=== PATIENT | female | born 1975 | race Hispanic/Latino ===

== ENCOUNTER 2020-12-05 06:50 | Emergency (ER) | payer MEDICAID, MEDICARE, OTHER ==
[~2020-12-05] VITALS: Ht 152.4 cm; Wt 81.6 kg
[~2020-12-05 06:50] MED LIST: AMLO5TAB4 PO; FERS325 PO; HYDR100T27 PO; ROSU20TA31 PO
[2020-12-05 07:48] VITALS: BP 142/58
[2020-12-05 08:59] LABS: BASOPHILS % (AUTO) 0.9 % (0.0-5.0); EOSINOPHILS % (AUTO) 2.8 % (0.0-8.0); HEMATOCRIT 38.6 % (36-48); LYMPHOCYTES % (AUTO) 17.6 % (21.0-51.0); MEAN CORPUSCULAR HEMOGLOBIN 26.9 pg (27.0-33.0); MEAN CORPUSCULAR HGB CONC 30.8 g/dL (32.0-36.0); MEAN CORPUSCULAR VOLUME 87.3 fL (79-99); MONOCYTES % (AUTO) 12.7 % (3.0-13.0); NEUTROPHILS % (AUTO) 65.5 % (40.0-77.0); PLATELET COUNT (AUTO) 300 K/uL (130-400); RED BLOOD CELL COUNT(AUTO) 4.42 MIL/uL (4.00-5.50); RED CELL DISTRIBUTION WIDTH 17.8 % (11.0-15.5); WHITE BLOOD COUNT (AUTO) 4.3 K/uL (4.8-10.8)
[2020-12-05 09:01] VITALS: BP 142/71
[2020-12-05 09:04] LABS: APPEARANCE,URINE Cloudy (CLEAR); BILIRUBIN,URINE Negative (NEGATIVE); COLOR,URINE Yellow (YELLOW); GLUCOSE, URINE (UA) TRACE mg/dL (NEGATIVE); KETONES,URINE Trace mg/dL (NEGATIVE); LEUKOCYTE ESTERASE ,URINE Moderate (NEGATIVE); NITRATE,URINE Positive (NEGATIVE); OCCULT BLOOD,URINE Trace (NEGATIVE); PH,URINE 5.5 (5.0-8.0); PROTEIN,URINE >=1000 mg/dL (NEGATIVE); UROBILINOGEN,URINE 0.2 mg/dL (0.2-1.0)
[2020-12-05 09:05] LABS: HCG,QUAL RESULT NEGATIVE (NEGATIVE)
[2020-12-05 09:17] LABS: RBC,URINE 0-1 /HPF (0-1); WBC,URINE 51-100 /HPF (0-1)
[2020-12-05 09:18] LABS: BACTERIA,URINE Rare /HPF (None Seen); SQUAMOUS EPITHELIAL CELL,UR Few /HPF (0-2)
[2020-12-05 09:38] LABS: ALBUMIN 2.1 g/dL (3.5-5.0); BILIRUBIN,TOTAL 0.3 mg/dL (0.2-1.0); TOTAL PROTEIN, SERUM 6.6 g/dL (6.0-8.3)
[2020-12-05 09:48] LABS: CREATININE 9.9 mg/dL (0.5-1.5)
[2020-12-05] MEDS ORDERED: BENZ-39 PO (10:21)
[2020-12-05] MEDS ORDERED: DOXY-252 PO (10:21)
[2020-12-05] MEDS ORDERED: CEFTRIAXONE 1G VIAL IVP SCH (10:30)
[2020-12-05 11:00] VITALS: BP 162/85
== END 2020-12-05 11:14 | disposition home or self-care (01) ==
LOC: EDH 06:50
DX: J18.9 Pneumonia, unspecified organism (principal); I12.0 Hypertensive chronic kidney disease with stage 5 chronic kidney disease or end stage renal disease; N18.6 End stage renal disease; Z20.822 Contact with and (suspected) exposure to COVID-19; E78.00 Pure hypercholesterolemia, unspecified; Z79.899 Other long term (current) drug therapy
CPT/HCPCS: 36415; 71045; 80053; 81001; 81025; 82550; 83605; 83874; 84484; 85025; 87040 ×2; 87077; 87088; 87186; 87635; 87804 ×2; 87880; 93005; 96374; 99285; C9803; J0696

== ENCOUNTER 2021-02-12 11:37 | Inpatient (IN) | payer OTHER ==
[~2021-02-12] VITALS: Ht 162.6 cm; Wt 99.8 kg
[~2021-02-12 11:37] MED LIST changes: +BENZ-39 PO; +DOXY-252 PO
[2021-02-12] MEDS ORDERED: MAG/ALUM/SIMETH 30 ML UDCUP PO SCH (12:00)
[2021-02-12] MEDS ORDERED: LORAZEPAM 2 MG/ML 1 ML VIAL IVP SCH (12:00)
[2021-02-12] MEDS ORDERED: ONDANSETRON 4MG INJ IVP SCH (12:00)
[2021-02-12] MEDS ORDERED: FAMOTIDINE 20MG VIAL IV SCH (12:00)
[2021-02-12 12:16] LABS: BASOPHILS % (AUTO) 0.9 % (0.0-5.0); EOSINOPHILS % (AUTO) 4.4 % (0.0-8.0); LYMPHOCYTES % (AUTO) 21.4 % (21.0-51.0); MEAN CORPUSCULAR HEMOGLOBIN 27.8 pg (27.0-33.0); MEAN CORPUSCULAR HGB CONC 31.9 g/dL (32.0-36.0); MEAN CORPUSCULAR VOLUME 87.4 fL (79-99); MONOCYTES % (AUTO) 9.7 % (3.0-13.0); NEUTROPHILS % (AUTO) 62.9 % (40.0-77.0); PLATELET COUNT (AUTO) 180 K/uL (130-400); RED BLOOD CELL COUNT(AUTO) 3.09 MIL/uL (4.00-5.50); RED CELL DISTRIBUTION WIDTH 17.3 % (11.0-15.5); WHITE BLOOD COUNT (AUTO) 5.5 K/uL (4.8-10.8)
[2021-02-12] MEDS ORDERED: LIDOCAINE HCL 2% VISCOUS 15 ML UDCUP ONE (12:18)
[2021-02-12 12:20] LABS: APPEARANCE,URINE CLEAR (CLEAR); BILIRUBIN,URINE NEGATIVE (NEGATIVE); COLOR,URINE YELLOW (YELLOW); GLUCOSE, URINE (UA) 100 mg/dL (NEGATIVE); KETONES,URINE NEGATIVE (NEGATIVE); LEUKOCYTE ESTERASE ,URINE MODERATE (NEGATIVE); NITRATE,URINE NEGATIVE (NEGATIVE); OCCULT BLOOD,URINE LARGE (NEGATIVE); PH,URINE 5.5 (5.0-8.0); PROTEIN,URINE >=300 mg/dL (NEGATIVE); UROBILINOGEN,URINE 0.2 mg/dL (0.2-1.0)
[2021-02-12 12:37] LABS: ALBUMIN 2.6 g/dL (3.5-5.0); BILIRUBIN,TOTAL 0.2 mg/dL (0.2-1.0); TOTAL PROTEIN, SERUM 6.5 g/dL (6.0-8.3)
[2021-02-12 12:50] LABS: B-TYPE NATRIURETIC PEPTIDE 161 pg/mL (0-100)
[2021-02-12 12:51] LABS: BACTERIA,URINE Many /HPF (None Seen)
[2021-02-12 12:52] LABS: SQUAMOUS EPITHELIAL CELL,UR 0-2 /HPF (0-2)
[2021-02-12 12:56] LABS: CREATININE 11.6 mg/dL (0.5-1.5); POTASSIUM 6.1 mmol/L (3.5-5.1)
[2021-02-12] MEDS ORDERED: 0.9%NACL 1000ML 1,000 ML IV SCH (13:00)
[2021-02-12] MEDS ORDERED: SODIUM BICARB 8.4% 50ML SYRINGE IVP SCH (13:00)
[2021-02-12] MEDS ORDERED: FUROSEMIDE 40 MG UD CUP PO SCH (13:00)
[2021-02-12] MEDS ORDERED: INSULIN HUMULIN R 100 UNIT/ML 3ML IV SCH (13:00)
[2021-02-12] MEDS ORDERED: CEFTRIAXONE 1G VIAL IVP SCH (13:00)
[2021-02-12] MEDS ORDERED: CALCIUM GLUC 1GM 1 GM in 0.9%NACL 100ML 100 ML IV SCH (13:00)
[2021-02-12] MEDS ORDERED: ALBUTEROL 0.083% 2.5 MG/3 ML INH IH ONE (13:15)
[2021-02-12] MEDS ORDERED: DEXTROSE 50%-WATER 50 ML DISP.SYRIN IV SCH (13:30)
[2021-02-12] MEDS ORDERED: NA ZIRCON CYCLOSIL(LOKELMA 10GM) PO SCH (13:30)
[2021-02-12] MEDS ORDERED: ALBUTEROL 0.083% 2.5 MG/3 ML INH IH SCH ×3 (13:30→18:00)
[2021-02-12] MEDS ORDERED: SODIUM BICARB 50MEQ 50ML VIAL 50 ML ONE (14:05)
[2021-02-12] MEDS: KAYEXALATE 15GM/60ML PO SCH ×2 (14:09→16:07)
[2021-02-12] MEDS ORDERED: LISI10TA24 PO (14:29)
[2021-02-12] MEDS ORDERED: CHOL200074 PO (14:29)
[2021-02-12] MEDS ORDERED: FUROSEMIDE 100MG VIAL IVP ONE (15:30)
[2021-02-12] MEDS ORDERED: ACETAMINOPHEN 325 MG TAB PO PRN (15:30)
[2021-02-12] MEDS ORDERED: ACETAMINOPHEN 650 MG SUPPOSITORY RC PRN (15:30)
[2021-02-12] MEDS: INSULIN HUMULIN R 100 UNIT/ML 3ML SQ SCH ×2 (16:30→20:51)
[2021-02-12 17:45] LABS: % IRON SATURATION 87.2 % (22-44)
[2021-02-12] MEDS ORDERED: KAYEXALATE 15GM/60ML PO PRN (18:30)
[2021-02-12] MEDS ORDERED: GLUCAGON 1MG KIT 1 MG ML IM PRN (18:30)
[2021-02-12] MEDS ORDERED: DEXTROSE 50%-WATER 50 ML DISP.SYRIN IV PRN (18:30)
[2021-02-12] MEDS ORDERED: SODIUM BICARB 50MEQ 50ML VIAL IV SCH (18:30)
[2021-02-12] MEDS ORDERED: SODIUM BICARBONATE 650 MG TAB ONE (19:29)
[2021-02-12] MEDS: SODIUM BICARBONATE 650 MG TAB PO SCH ×2 (19:30→19:41)
[2021-02-12 19:34] LABS: ABG HCO3 13.5 mmol/L (21.0-28.0); ABG OXYGEN SATURATION 96.7 % (95.0-99.0); ABG PCO2 33 mmHg (32-45)
[2021-02-12] MEDS ORDERED: SODIUM BICARB 50MEQ 50ML VIAL IV ONE (22:00)
[2021-02-13] MEDS: INSULIN HUMULIN R 100 UNIT/ML 3ML SQ SCH ×4 (07:20→21:00)
[2021-02-13 07:29] LABS: BASOPHILS % (AUTO) 1.3 % (0.0-5.0); EOSINOPHILS % (AUTO) 3.8 % (0.0-8.0); HEMATOCRIT 24.6 % (36-48); LYMPHOCYTES % (AUTO) 19.5 % (21.0-51.0); MEAN CORPUSCULAR HEMOGLOBIN 27.3 pg (27.0-33.0); MEAN CORPUSCULAR HGB CONC 31.7 g/dL (32.0-36.0); MONOCYTES % (AUTO) 11.6 % (3.0-13.0); NEUTROPHILS % (AUTO) 63.4 % (40.0-77.0); PLATELET COUNT (AUTO) 187 K/uL (130-400); RED BLOOD CELL COUNT(AUTO) 2.86 MIL/uL (4.00-5.50); RED CELL DISTRIBUTION WIDTH 16.9 % (11.0-15.5); WHITE BLOOD COUNT (AUTO) 5.2 K/uL (4.8-10.8)
[2021-02-13 07:36] LABS: HEMOGLOBIN A1C 6.1 % (4.0-6.0)
[2021-02-13 07:51] LABS: MAGNESIUM 2.3 mg/dL (1.80-2.40); PHOSPHORUS 10.6 mg/dL (2.5-4.9); POTASSIUM 5.3 mmol/L (3.5-5.1); THYROID STIMULATING HORMONE 17.92 uIU/mL (0.36-3.74)
[2021-02-13 08:32] LABS: CREATININE 11.6 mg/dL (0.5-1.5)
[2021-02-13] MEDS: Vitamin B Complex/Vit C/Folic Acid PO SCH (09:22)
[2021-02-13] MEDS: ENOXAPARIN SODIUM 30 MG/0.3 ML SQ SCH (09:30)
[2021-02-13] MEDS ORDERED: KAYEXALATE 15GM/60ML PO SCH (10:00)
[2021-02-13] MEDS ORDERED: NA ZIRCON CYCLOSIL(LOKELMA 10GM) PO SCH (10:00)
[2021-02-13] MEDS ORDERED: LEVOTHYROXINE 50 MCG TABLET PO SCH (10:05)
[2021-02-13] MEDS: HYDRALAZINE 25MG TABLET PO SCH ×2 (14:00→19:45)
[2021-02-13] MEDS: SODIUM BICARBONATE 650 MG TAB PO SCH ×2 (14:48→19:44)
[2021-02-13] MEDS: FERROUS SULFATE 325 MG TABLET.DR PO SCH (18:46)
[2021-02-13] MEDS: BENZONATATE 100 MG CAPSULE PO SCH (19:44)
[2021-02-13] MEDS ORDERED: FUROSEMIDE 40MG VIAL IVP ONE (20:22)
[2021-02-13] MEDS ORDERED: ATORVASTATIN 40 MG TABLET PO SCH (21:00)
[2021-02-14] MEDS ORDERED: LEVOTHYROXINE 50 MCG TABLET PO SCH (06:30)
[2021-02-14 06:47] LABS: POTASSIUM 4.6 mmol/L (3.5-5.1)
[2021-02-14 06:53] LABS: CREATININE 11.1 mg/dL (0.5-1.5)
[2021-02-14] MEDS: INSULIN HUMULIN R 100 UNIT/ML 3ML SQ SCH (07:30)
[2021-02-14] MEDS ORDERED: SODI650T PO (08:16)
[2021-02-14] MEDS ORDERED: SODI10PO2 PO (08:16)
[2021-02-14] MEDS ORDERED: LEVO50TA11 PO (08:16)
[2021-02-14] MEDS ORDERED: DOCU-116 PO (08:16)
[2021-02-14] MEDS ORDERED: FOLI0.8T2 PO (08:16)
[2021-02-14] MEDS ORDERED: FURO40TA5 PO (08:17)
[2021-02-14] MEDS: FERROUS SULFATE 325 MG TABLET.DR PO SCH (08:22)
[2021-02-14] MEDS ORDERED: SODIUM ZIRCONIUM CYCLOSILICATE 5 GM POWD.PACK PO SCH (09:00)
[2021-02-14] MEDS ORDERED: FUROSEMIDE 40 MG TABLET PO SCH (09:00)
[2021-02-14] MEDS ORDERED: ***HM*** (Cholecalciferol (Vitamin D3) (Vitamin D3) 50 MCG) PO SCH (09:00)
[2021-02-14] MEDS ORDERED: AMLODIPINE 5 MG TAB PO SCH (09:00)
[2021-02-14] MEDS: SODIUM BICARBONATE 650 MG TAB PO SCH (09:12)
[2021-02-14] MEDS: Vitamin B Complex/Vit C/Folic Acid PO SCH (09:12)
[2021-02-14] MEDS: BENZONATATE 100 MG CAPSULE PO SCH (09:12)
[2021-02-14] MEDS: HYDRALAZINE 25MG TABLET PO SCH (09:12)
[2021-02-14] MEDS: ENOXAPARIN SODIUM 30 MG/0.3 ML SQ SCH (09:13)
[2021-02-14 09:41] VITALS: BP 167/51
== END 2021-02-14 10:44 | disposition home or self-care (01) | DRG 291 ==
LOC: EDH 11:37 → EDHIP 15:17 → OBSVTOIN 15:17
PROVIDERS: ADMIT Internal Medicine Pulmonary Disease; ATTEND Internal Medicine Pulmonary Disease
DX: I13.2 Hypertensive heart and chronic kidney disease with heart failure and with stage 5 chronic kidney disease, or end stage renal disease (principal); I50.31 Acute diastolic (congestive) heart failure; J96.01 Acute respiratory failure with hypoxia; N18.6 End stage renal disease; N39.0 Urinary tract infection, site not specified; E87.5 Hyperkalemia; E66.01 Morbid (severe) obesity due to excess calories; D63.8 Anemia in other chronic diseases classified elsewhere; Z20.822 Contact with and (suspected) exposure to COVID-19; E78.5 Hyperlipidemia, unspecified; E87.70 Fluid overload, unspecified; Z68.37 Body mass index [BMI] 37.0-37.9, adult; E11.22 Type 2 diabetes mellitus with diabetic chronic kidney disease; E03.9 Hypothyroidism, unspecified; E83.39 Other disorders of phosphorus metabolism; E83.51 Hypocalcemia; E78.00 Pure hypercholesterolemia, unspecified; E87.8 Other disorders of electrolyte and fluid balance, not elsewhere classified; Z79.899 Other long term (current) drug therapy; Z91.15 Patient's noncompliance with renal dialysis; Z91.19 Patient's noncompliance with other medical treatment and regimen; Z86.73 Personal history of transient ischemic attack (TIA), and cerebral infarction without residual deficits; Z84.1 Family history of disorders of kidney and ureter
CPT/HCPCS: 36415; 36600; 71045; 80048; 80053; 81001; 81025; 82435; 82550; 82803; 82947; 82948; 83036; 83540; 83550; 83605; 83690; 83735; 83874; 83880; 84100; 84132; 84145; 84295; 84443; 84484; 85018; 85025; 85378; 87077; 87088; 87186; 87635; 93005; 94640; G0378; J0610; J1650; J1815; J1940; J2060; J2405; J3490; J7070

== ENCOUNTER 2021-02-16 11:41 | Inpatient (IN) | payer OTHER ==
[~2021-02-16] VITALS: Ht 167.6 cm; Wt 106.6 kg
[2021-02-16] VITALS (17 sets, daily range): BP systolic 132–180; BP diastolic 45–94
[~2021-02-16 11:41] MED LIST changes: +CHOL200074 PO; +DOCU-116 PO; -DOXY-252 PO; +FOLI0.8T2 PO; +FURO40TA5 PO; +LEVO50TA11 PO; +SODI10PO2 PO; +SODI650T PO
[2021-02-16 12:20] LABS: BASOPHILS % (AUTO) 0.8 % (0.0-5.0); EOSINOPHILS % (AUTO) 2.7 % (0.0-8.0); LYMPHOCYTES % (AUTO) 12.2 % (21.0-51.0); MEAN CORPUSCULAR HEMOGLOBIN 27.7 pg (27.0-33.0); MEAN CORPUSCULAR HGB CONC 32.3 g/dL (32.0-36.0); MEAN CORPUSCULAR VOLUME 85.8 fL (79-99); MONOCYTES % (AUTO) 11.2 % (3.0-13.0); NEUTROPHILS % (AUTO) 72.8 % (40.0-77.0); PLATELET COUNT (AUTO) 180 K/uL (130-400); RED BLOOD CELL COUNT(AUTO) 3.03 MIL/uL (4.00-5.50); RED CELL DISTRIBUTION WIDTH 15.9 % (11.0-15.5)
[2021-02-16 12:21] LABS: APPEARANCE,URINE Cloudy (CLEAR); BILIRUBIN,URINE Negative (NEGATIVE); COLOR,URINE Yellow (YELLOW); GLUCOSE, URINE (UA) 250 mg/dL (NEGATIVE); KETONES,URINE Negative (NEGATIVE); LEUKOCYTE ESTERASE ,URINE Small (NEGATIVE); NITRATE,URINE Negative (NEGATIVE); OCCULT BLOOD,URINE Trace (NEGATIVE); PH,URINE 5.5 (5.0-8.0); PROTEIN,URINE 300 mg/dL (NEGATIVE); UROBILINOGEN,URINE 0.2 mg/dL (0.2-1.0)
[2021-02-16 12:29] LABS: INR 1.66 (0.85-1.15); PROTHROMBIN TIME 17.3 SEC (9.6-11.6)
[2021-02-16 12:30] LABS: ALBUMIN 2.9 g/dL (3.5-5.0); POTASSIUM 3.6 mmol/L (3.5-5.1)
[2021-02-16 12:31] LABS: PARTIAL THROMBOPLASTIN TIME 30.5 SEC (26.3-35.5)
[2021-02-16 12:45] LABS: CRP QUANTITATIVE 26.6 mg/L (0.00-9.0)
[2021-02-16 12:46] LABS: BILIRUBIN,TOTAL 0.3 mg/dL (0.2-1.0); TOTAL PROTEIN, SERUM 7.1 g/dL (6.0-8.3)
[2021-02-16 12:47] LABS: BACTERIA,URINE Moderate /HPF (None Seen); FINE GRANULAR CASTS,URINE 0-2 /LPF (None Seen); RBC,URINE 0-1 /HPF (0-1); SQUAMOUS EPITHELIAL CELL,UR 0-2 /HPF (0-2)
[2021-02-16] MEDS ORDERED: LACTULOSE 20 GM/30 ML UDCUP PO PRN (13:00)
[2021-02-16] MEDS ORDERED: ONDANSETRON 4MG INJ IVP PRN (13:00)
[2021-02-16] MEDS ORDERED: LABETALOL 20MG SYG IV PRN (13:00)
[2021-02-16] MEDS ORDERED: CEFTRIAXONE 1G VIAL IVP ONE (13:00)
[2021-02-16] MEDS ORDERED: HYDRALAZINE 20MG/ML VIAL IV PRN (13:00)
[2021-02-16] MEDS ORDERED: ALBUTEROL 0.083% 2.5 MG/3 ML INH IH PRN (13:00)
[2021-02-16] MEDS: HEPARIN 5,000 UNIT VIAL SQ SCH (13:27)
[2021-02-16 13:30] LABS: B-TYPE NATRIURETIC PEPTIDE 428 pg/mL (0-100)
[2021-02-16] MEDS: INSULIN HUMULIN R 100 UNIT/ML 3ML SQ SCH ×2 (16:30→21:00)
[2021-02-16 16:33] LABS: HEMOGLOBIN A1C 6.2 % (4.0-6.0)
[2021-02-16 16:35] LABS: ALBUMIN 2.6 g/dL (3.5-5.0)
[2021-02-16 16:38] LABS: CREATININE 9.6 mg/dL (0.5-1.5)
[2021-02-16] MEDS ORDERED: LIDOCAINE HCL 1% MDV 50ML VIAL ONE (17:29)
[2021-02-16] MEDS ORDERED: HEPARIN 1,000 UNIT VIAL ONE (17:51)
[2021-02-16] MEDS ORDERED: HEPARIN 5,000 UNIT VIAL IV SCH (22:30)
[2021-02-17] VITALS (18 sets, daily range): BP systolic 123–184; BP diastolic 56–78
[2021-02-17] MEDS: HEPARIN 5,000 UNIT VIAL SQ SCH ×2 (01:58→15:20)
[2021-02-17 05:13] LABS: BASOPHILS % (AUTO) 0.8 % (0.0-5.0); EOSINOPHILS % (AUTO) 0.9 % (0.0-8.0); HEMATOCRIT 23.9 % (36-48); LYMPHOCYTES % (AUTO) 10.6 % (21.0-51.0); MEAN CORPUSCULAR HEMOGLOBIN 27.4 pg (27.0-33.0); MEAN CORPUSCULAR HGB CONC 32.2 g/dL (32.0-36.0); MEAN CORPUSCULAR VOLUME 85.1 fL (79-99); MONOCYTES % (AUTO) 10.6 % (3.0-13.0); NEUTROPHILS % (AUTO) 76.7 % (40.0-77.0); PLATELET COUNT (AUTO) 138 K/uL (130-400); RED BLOOD CELL COUNT(AUTO) 2.81 MIL/uL (4.00-5.50); RED CELL DISTRIBUTION WIDTH 15.3 % (11.0-15.5); WHITE BLOOD COUNT (AUTO) 5.3 K/uL (4.8-10.8)
[2021-02-17 05:30] LABS: % IRON SATURATION 24.3 % (22-44)
[2021-02-17 05:37] LABS: ALBUMIN 2.2 g/dL (3.5-5.0); BILIRUBIN,TOTAL 0.2 mg/dL (0.2-1.0); MAGNESIUM 1.7 mg/dL (1.80-2.40); POTASSIUM 3.5 mmol/L (3.5-5.1); TOTAL PROTEIN, SERUM 5.8 g/dL (6.0-8.3)
[2021-02-17] MEDS: INSULIN HUMULIN R 100 UNIT/ML 3ML SQ SCH ×4 (06:33→20:31)
[2021-02-17] MEDS: HYDRALAZINE 25MG TABLET PO SCH ×3 (09:00→20:25)
[2021-02-17] MEDS: CHOLECALCIFEROL 50 MCG PO SCH (09:00)
[2021-02-17] MEDS: PANTOPRAZOLE 40 MG TAB DR PO SCH (10:03)
[2021-02-17] MEDS: Vitamin B Complex/Vit C/Folic Acid PO SCH (10:03)
[2021-02-17] MEDS: DOCUSATE SODIUM 100 MG CAP PO SCH (10:03)
[2021-02-17] MEDS: LEVOTHYROXINE 50 MCG TABLET PO SCH (10:04)
[2021-02-17] MEDS: ACETAMINOPHEN 325 MG TAB PO PRN (10:08)
[2021-02-17] MEDS: LISINOPRIL 40 MG TABLET PO SCH (12:30)
[2021-02-17] MEDS ORDERED: EPOETIN ALFA-EPBX (ESRD) 10,000 UNIT/ML VIAL SQ SCH (12:30)
[2021-02-17] MEDS ORDERED: LISINOPRIL 40 MG TABLET PO SCH (12:30)
[2021-02-17] MEDS ORDERED: SOD FERRIC GLUC COMPLEX/SUC 125 MG in 0.9%NACL 100ML 100 ML IV SCH (12:30)
[2021-02-17] MEDS ORDERED: MAGNESIUM 2GM PREMIX 50ML 50 ML IV PRN (20:00)
[2021-02-17] MEDS ORDERED: POTASSIUM CHLORIDE 20MEQ/100ML 100 ML IV PRN (20:00)
[2021-02-17] MEDS ORDERED: POTASSIUM CHLORIDE 10% ELIXIR 20 MEQ/15 ML UDCUP PO PRN (20:00)
[2021-02-18] VITALS (21 sets, daily range): BP systolic 115–184; BP diastolic 53–96
[2021-02-18] MEDS: HEPARIN 5,000 UNIT VIAL SQ SCH ×2 (01:34→13:50)
[2021-02-18 05:07] LABS: BASOPHILS % (AUTO) 0.9 % (0.0-5.0); EOSINOPHILS % (AUTO) 1.9 % (0.0-8.0); HEMATOCRIT 24.1 % (36-48); LYMPHOCYTES % (AUTO) 21.9 % (21.0-51.0); MEAN CORPUSCULAR HEMOGLOBIN 27.1 pg (27.0-33.0); MEAN CORPUSCULAR HGB CONC 31.5 g/dL (32.0-36.0); MEAN CORPUSCULAR VOLUME 86.1 fL (79-99); MONOCYTES % (AUTO) 14.8 % (3.0-13.0); NEUTROPHILS % (AUTO) 60.1 % (40.0-77.0); PLATELET COUNT (AUTO) 103 K/uL (130-400); RED CELL DISTRIBUTION WIDTH 15.4 % (11.0-15.5); WHITE BLOOD COUNT (AUTO) 4.7 K/uL (4.8-10.8)
[2021-02-18 05:28] LABS: ALBUMIN 2.1 g/dL (3.5-5.0); BILIRUBIN,TOTAL 0.3 mg/dL (0.2-1.0); CREATININE 5.4 mg/dL (0.5-1.5); POTASSIUM 3.3 mmol/L (3.5-5.1); TOTAL PROTEIN, SERUM 5.8 g/dL (6.0-8.3)
[2021-02-18] MEDS: INSULIN HUMULIN R 100 UNIT/ML 3ML SQ SCH ×4 (05:56→21:39)
[2021-02-18] MEDS: LEVOTHYROXINE 50 MCG TABLET PO SCH (06:05)
[2021-02-18] MEDS: KCL 20 MEQ ERTAB PO PRN ×3 (06:05→13:49)
[2021-02-18] MEDS: CHOLECALCIFEROL 50 MCG PO SCH (09:00)
[2021-02-18] MEDS: DOCUSATE SODIUM 100 MG CAP PO SCH (09:17)
[2021-02-18] MEDS: HYDRALAZINE 25MG TABLET PO SCH (09:18)
[2021-02-18] MEDS: Vitamin B Complex/Vit C/Folic Acid PO SCH (09:18)
[2021-02-18] MEDS: LISINOPRIL 40 MG TABLET PO SCH (09:18)
[2021-02-18] MEDS: PANTOPRAZOLE 40 MG TAB DR PO SCH (09:18)
[2021-02-18] MEDS ORDERED: 0.9%NACL 1000ML 1,000 ML IV PRN (13:00)
[2021-02-18 13:11] LABS: HEPATITIS Bs ANTIGEN SCREEN P Negative (Negative)
[2021-02-18] MEDS: METOPROLOL TARTRATE 50 MG TAB PO SCH (21:33)
[2021-02-19] MEDS: HEPARIN 5,000 UNIT VIAL SQ SCH (01:46)
[2021-02-19] MEDS ORDERED: ZOSYN 3.375GM+NS 50ML 50 ML ONE (02:35)
[2021-02-19] MEDS: ZOSYN 3.375GM +NS 50ML IV SCH ×2 (02:38→13:41)
[2021-02-19 04:05] VITALS: BP 152/57
[2021-02-19 04:06] LABS: BASOPHILS % (AUTO) 0.9 % (0.0-5.0); EOSINOPHILS % (AUTO) 4.7 % (0.0-8.0); HEMATOCRIT 25.2 % (36-48); LYMPHOCYTES % (AUTO) 18.2 % (21.0-51.0); MEAN CORPUSCULAR HEMOGLOBIN 27.2 pg (27.0-33.0); MEAN CORPUSCULAR HGB CONC 30.6 g/dL (32.0-36.0); MONOCYTES % (AUTO) 18.2 % (3.0-13.0); NEUTROPHILS % (AUTO) 57.6 % (40.0-77.0); PLATELET COUNT (AUTO) 96 K/uL (130-400); RED BLOOD CELL COUNT(AUTO) 2.83 MIL/uL (4.00-5.50); RED CELL DISTRIBUTION WIDTH 15.6 % (11.0-15.5); WHITE BLOOD COUNT (AUTO) 4.7 K/uL (4.8-10.8)
[2021-02-19 04:53] LABS: ALBUMIN 2.1 g/dL (3.5-5.0); BILIRUBIN,TOTAL 0.2 mg/dL (0.2-1.0); CREATININE 4.3 mg/dL (0.5-1.5); POTASSIUM 4.2 mmol/L (3.5-5.1); TOTAL PROTEIN, SERUM 5.9 g/dL (6.0-8.3)
[2021-02-19] MEDS: INSULIN HUMULIN R 100 UNIT/ML 3ML SQ SCH ×4 (06:49→21:36)
[2021-02-19] MEDS: LEVOTHYROXINE 50 MCG TABLET PO SCH (06:52)
[2021-02-19 07:40] VITALS: BP 181/66
[2021-02-19] MEDS: CHOLECALCIFEROL 50 MCG PO SCH (09:00)
[2021-02-19] MEDS: LISINOPRIL 40 MG TABLET PO SCH (09:22)
[2021-02-19] MEDS: Vitamin B Complex/Vit C/Folic Acid PO SCH (09:22)
[2021-02-19] MEDS: METOPROLOL TARTRATE 50 MG TAB PO SCH ×2 (09:22→21:33)
[2021-02-19] MEDS: DOCUSATE SODIUM 100 MG CAP PO SCH (09:22)
[2021-02-19] MEDS: AMLODIPINE 5 MG TAB PO SCH (09:22)
[2021-02-19] MEDS: PANTOPRAZOLE 40 MG TAB DR PO SCH (09:22)
[2021-02-19 11:40] VITALS: BP 130/55
[2021-02-19] MEDS: ACETAMINOPHEN 325 MG TAB PO PRN (13:42)
[2021-02-19 15:30] VITALS: BP 108/72
[2021-02-19 20:13] VITALS: BP 129/55
[2021-02-19 23:25] VITALS: BP 128/63
[2021-02-20] MEDS: ZOSYN 3.375GM +NS 50ML IV SCH ×2 (02:15→15:10)
[2021-02-20 04:12] LABS: BASOPHILS % (AUTO) 0.8 % (0.0-5.0); EOSINOPHILS % (AUTO) 5.9 % (0.0-8.0); HEMATOCRIT 22.5 % (36-48); MEAN CORPUSCULAR HEMOGLOBIN 27.6 pg (27.0-33.0); MEAN CORPUSCULAR HGB CONC 31.6 g/dL (32.0-36.0); MEAN CORPUSCULAR VOLUME 87.5 fL (79-99); MONOCYTES % (AUTO) 15.1 % (3.0-13.0); NEUTROPHILS % (AUTO) 55.9 % (40.0-77.0); PLATELET COUNT (AUTO) 122 K/uL (130-400); RED BLOOD CELL COUNT(AUTO) 2.57 MIL/uL (4.00-5.50); RED CELL DISTRIBUTION WIDTH 15.7 % (11.0-15.5)
[2021-02-20 04:13] VITALS: BP 154/55
[2021-02-20 04:26] LABS: ALBUMIN 2.1 g/dL (3.5-5.0); BILIRUBIN,TOTAL 0.2 mg/dL (0.2-1.0); CREATININE 5.6 mg/dL (0.5-1.5); POTASSIUM 4.2 mmol/L (3.5-5.1); TOTAL PROTEIN, SERUM 5.7 g/dL (6.0-8.3)
[2021-02-20] MEDS: INSULIN HUMULIN R 100 UNIT/ML 3ML SQ SCH ×4 (05:44→19:33)
[2021-02-20] MEDS: LEVOTHYROXINE 50 MCG TABLET PO SCH (06:37)
[2021-02-20 07:40] VITALS: BP 168/64
[2021-02-20] MEDS: Vitamin B Complex/Vit C/Folic Acid PO SCH (08:43)
[2021-02-20] MEDS: DOCUSATE SODIUM 100 MG CAP PO SCH (08:43)
[2021-02-20] MEDS: METOPROLOL TARTRATE 50 MG TAB PO SCH ×2 (08:44→19:34)
[2021-02-20] MEDS: LISINOPRIL 40 MG TABLET PO SCH (08:44)
[2021-02-20] MEDS: PANTOPRAZOLE 40 MG TAB DR PO SCH (08:44)
[2021-02-20] MEDS: AMLODIPINE 5 MG TAB PO SCH (08:44)
[2021-02-20] MEDS: CHOLECALCIFEROL 50 MCG PO SCH (08:46)
[2021-02-20 11:22] VITALS: BP 161/59
[2021-02-20 15:40] VITALS: BP 115/23
[2021-02-20 19:52] VITALS: BP 157/65
[2021-02-20 23:24] VITALS: BP 158/67
[2021-02-21] VITALS (38 sets, daily range): BP systolic 124–199; BP diastolic 53–88
[2021-02-21] MEDS: ZOSYN 3.375GM +NS 50ML IV SCH ×2 (00:36→14:17)
[2021-02-21 04:25] LABS: BASOPHILS % (AUTO) 0.9 % (0.0-5.0); EOSINOPHILS % (AUTO) 5.8 % (0.0-8.0); HEMATOCRIT 22.4 % (36-48); LYMPHOCYTES % (AUTO) 24.5 % (21.0-51.0); MEAN CORPUSCULAR HEMOGLOBIN 27.6 pg (27.0-33.0); MEAN CORPUSCULAR HGB CONC 30.8 g/dL (32.0-36.0); MEAN CORPUSCULAR VOLUME 89.6 fL (79-99); MONOCYTES % (AUTO) 9.8 % (3.0-13.0); NEUTROPHILS % (AUTO) 58.6 % (40.0-77.0); PLATELET COUNT (AUTO) 148 K/uL (130-400); RED CELL DISTRIBUTION WIDTH 15.8 % (11.0-15.5); WHITE BLOOD COUNT (AUTO) 5.5 K/uL (4.8-10.8)
[2021-02-21 04:38] LABS: ALBUMIN 2.1 g/dL (3.5-5.0); BILIRUBIN,TOTAL 0.2 mg/dL (0.2-1.0); CREATININE 6.3 mg/dL (0.5-1.5); POTASSIUM 4.8 mmol/L (3.5-5.1); TOTAL PROTEIN, SERUM 5.7 g/dL (6.0-8.3)
[2021-02-21] MEDS: INSULIN HUMULIN R 100 UNIT/ML 3ML SQ SCH ×4 (05:08→21:00)
[2021-02-21] MEDS: LEVOTHYROXINE 50 MCG TABLET PO SCH (05:51)
[2021-02-21] MEDS: PANTOPRAZOLE 40 MG TAB DR PO SCH (09:00)
[2021-02-21] MEDS: DOCUSATE SODIUM 100 MG CAP PO SCH (09:00)
[2021-02-21] MEDS: AMLODIPINE 5 MG TAB PO SCH (09:00)
[2021-02-21] MEDS: METOPROLOL TARTRATE 50 MG TAB PO SCH ×2 (09:00→20:36)
[2021-02-21] MEDS: CHOLECALCIFEROL 50 MCG PO SCH (09:00)
[2021-02-21] MEDS: Vitamin B Complex/Vit C/Folic Acid PO SCH (09:00)
[2021-02-21] MEDS: LISINOPRIL 40 MG TABLET PO SCH ×2 (09:00→12:07)
[2021-02-21] MEDS ORDERED: 0.9% NACL 500ML IV.SOLN 500 ML IV ONE ×2 (11:24→13:54)
[2021-02-21] MEDS: HEPARIN 5,000 UNIT VIAL IV PRN (12:59)
[2021-02-21] MEDS ORDERED: CEFAZOLIN SODIUM 1 GM VIAL IVP PRN (13:00)
[2021-02-21] MEDS ORDERED: LIDOCAINE PF 100MG/5ML (2%) SYRINGE 5ML ONE (14:26)
[2021-02-21] MEDS ORDERED: FENTANYL CITRATE PF 50 MCG/1 ML 2ML VIAL ONE ×2 (14:26→16:46)
[2021-02-21] MEDS ORDERED: PROPOFOL 10 MG/ML 20ML VIAL IV ONE (14:27)
[2021-02-21] MEDS ORDERED: MIDAZOLAM HCL 1 MG/ML 2ML VIAL ONE (16:04)
[2021-02-21] MEDS ORDERED: ROCURONIUM 10MG/1ML SYR 10 MG/ML ML ONE (16:13)
[2021-02-21 16:35] LABS: ABG BASE EXCESS 1.6 mmol/L (-2.0-3.0); ABG HCO3 25.4 mmol/L (21.0-28.0); ABG OXYGEN SATURATION 99.2 % (95.0-99.0); ABG PCO2 37 mmHg (32-45)
[2021-02-21] MEDS ORDERED: HEPARIN 10,000 UNIT/10ML (1,000 UNIT/ML) VIAL ONE (16:53)
[2021-02-21] MEDS ORDERED: NEOSTIGMINE 5MG/5ML SYR IV ONE (17:20)
[2021-02-21] MEDS ORDERED: GLYCOPYRROLATE 1 MG/5 ML SYRINGE ONE (17:20)
[2021-02-21] MEDS ORDERED: ONDANSETRON 4MG INJ ONE (17:27)
[2021-02-21] MEDS ORDERED: DEXAMETHASONE SOD PHOSPHATE 10MG/ML 1ML VIAL ONE (17:27)
[2021-02-21] MEDS ORDERED: PROTAMINE SULFATE 10 MG/ML 25ML VIAL IV ONE (17:28)
[2021-02-21] MEDS: ACETAMINOPHEN 325 MG TAB PO PRN (20:37)
[2021-02-22] VITALS (19 sets, daily range): BP systolic 103–165; BP diastolic 49–76
[2021-02-22] MEDS: ZOSYN 3.375GM +NS 50ML IV SCH ×2 (03:01→14:45)
[2021-02-22 04:48] LABS: BASOPHILS % (AUTO) 0.2 % (0.0-5.0); HEMATOCRIT 29.2 % (36-48); LYMPHOCYTES % (AUTO) 7.3 % (21.0-51.0); MEAN CORPUSCULAR HEMOGLOBIN 27.2 pg (27.0-33.0); MEAN CORPUSCULAR HGB CONC 31.2 g/dL (32.0-36.0); MEAN CORPUSCULAR VOLUME 87.4 fL (79-99); MONOCYTES % (AUTO) 2.6 % (3.0-13.0); NEUTROPHILS % (AUTO) 89.7 % (40.0-77.0); PLATELET COUNT (AUTO) 154 K/uL (130-400); RED BLOOD CELL COUNT(AUTO) 3.34 MIL/uL (4.00-5.50); RED CELL DISTRIBUTION WIDTH 14.7 % (11.0-15.5); WHITE BLOOD COUNT (AUTO) 4.9 K/uL (4.8-10.8)
[2021-02-22 04:58] LABS: INR 0.99 (0.85-1.15); PROTHROMBIN TIME 10.8 SEC (9.6-11.6)
[2021-02-22 04:59] LABS: PARTIAL THROMBOPLASTIN TIME 24.5 SEC (26.3-35.5)
[2021-02-22 05:03] LABS: CREATININE 4.4 mg/dL (0.5-1.5); PHOSPHORUS 5.7 mg/dL (2.5-4.9)
[2021-02-22] MEDS: LEVOTHYROXINE 50 MCG TABLET PO SCH (06:27)
[2021-02-22] MEDS: INSULIN HUMULIN R 100 UNIT/ML 3ML SQ SCH ×4 (06:27→20:27)
[2021-02-22] MEDS: ACETAMINOPHEN 325 MG TAB PO PRN ×3 (08:58→22:18)
[2021-02-22] MEDS: CHOLECALCIFEROL 50 MCG PO SCH (09:00)
[2021-02-22] MEDS: Vitamin B Complex/Vit C/Folic Acid PO SCH (10:39)
[2021-02-22] MEDS: AMLODIPINE 5 MG TAB PO SCH (10:39)
[2021-02-22] MEDS: DOCUSATE SODIUM 100 MG CAP PO SCH (10:39)
[2021-02-22] MEDS: METOPROLOL TARTRATE 50 MG TAB PO SCH ×2 (10:39→20:22)
[2021-02-22] MEDS: PANTOPRAZOLE 40 MG TAB DR PO SCH (10:39)
[2021-02-22] MEDS ORDERED: LIDOCAINE HCL 1% MDV 50ML VIAL ONE (12:21)
[2021-02-22] MEDS ORDERED: HEPARIN 1,000 UNIT VIAL ONE (12:56)
[2021-02-23] VITALS (20 sets, daily range): BP systolic 123–173; BP diastolic 47–79
[2021-02-23] MEDS: ZOSYN 3.375GM +NS 50ML IV SCH (03:03)
[2021-02-23 04:52] LABS: HEMATOCRIT 26.3 % (36-48); MEAN CORPUSCULAR HEMOGLOBIN 27.5 pg (27.0-33.0); MEAN CORPUSCULAR HGB CONC 31.2 g/dL (32.0-36.0); MEAN CORPUSCULAR VOLUME 88.3 fL (79-99); RED BLOOD CELL COUNT(AUTO) 2.98 MIL/uL (4.00-5.50); RED CELL DISTRIBUTION WIDTH 14.8 % (11.0-15.5); WHITE BLOOD COUNT (AUTO) 6.1 K/uL (4.8-10.8)
[2021-02-23 05:00] LABS: CREATININE 5.6 mg/dL (0.5-1.5); POTASSIUM 4.9 mmol/L (3.5-5.1)
[2021-02-23] MEDS: INSULIN HUMULIN R 100 UNIT/ML 3ML SQ SCH ×2 (06:34→11:30)
[2021-02-23] MEDS: LEVOTHYROXINE 50 MCG TABLET PO SCH (06:36)
[2021-02-23] MEDS ORDERED: SOD FERRIC GLUC COMPLEX/SUC 125 MG in 0.9%NACL 100ML 100 ML IV SCH (08:00)
[2021-02-23] MEDS: CHOLECALCIFEROL 50 MCG PO SCH (09:00)
[2021-02-23] MEDS: DOCUSATE SODIUM 100 MG CAP PO SCH (09:04)
[2021-02-23] MEDS: AMLODIPINE 5 MG TAB PO SCH (09:05)
[2021-02-23] MEDS: PANTOPRAZOLE 40 MG TAB DR PO SCH (09:05)
[2021-02-23] MEDS: METOPROLOL TARTRATE 50 MG TAB PO SCH (09:05)
[2021-02-23] MEDS: Vitamin B Complex/Vit C/Folic Acid PO SCH (09:05)
[2021-02-23] MEDS: LISINOPRIL 40 MG TABLET PO SCH (09:05)
[2021-02-23] MEDS ORDERED: PHARMACY COMMUNICATION MISC SCH (12:00)
[2021-02-23] MEDS: HEPARIN 5,000 UNIT VIAL IV PRN (13:42)
== END 2021-02-23 15:35 | disposition home or self-care (01) | DRG 673 ==
LOC: EDH 11:41 → OBSVTOIN 12:51 → EDHIP 12:51 → 3BH 18:43
PROVIDERS: ADMIT Internal Medicine; ATTEND Internal Medicine
PROC: 05HM33Z Insertion of Infusion Device into Right Internal Jugular Vein, Percutaneous Approach (ICD-10-PCS; 2021-02-16)
PROC: B5131ZA Fluoroscopy of Right Jugular Veins using Low Osmolar Contrast, Guidance (ICD-10-PCS; 2021-02-16)
PROC: B543ZZA Ultrasonography of Right Jugular Veins, Guidance (ICD-10-PCS; 2021-02-16)
PROC: 5A1D70Z Performance of Urinary Filtration, Intermittent, Less than 6 Hours Per Day (ICD-10-PCS; 2021-02-16)
PROC: 5A1D70Z Performance of Urinary Filtration, Intermittent, Less than 6 Hours Per Day (ICD-10-PCS; 2021-02-17)
PROC: 5A1D70Z Performance of Urinary Filtration, Intermittent, Less than 6 Hours Per Day (ICD-10-PCS; 2021-02-18)
PROC: 30233N1 Transfusion of Nonautologous Red Blood Cells into Peripheral Vein, Percutaneous Approach (ICD-10-PCS; 2021-02-21)
PROC: 5A1D70Z Performance of Urinary Filtration, Intermittent, Less than 6 Hours Per Day (ICD-10-PCS; 2021-02-21)
PROC: 03180ZD Bypass Left Brachial Artery to Upper Arm Vein, Open Approach (ICD-10-PCS; principal; 2021-02-21 16:46)
PROC: 5A1D70Z Performance of Urinary Filtration, Intermittent, Less than 6 Hours Per Day (ICD-10-PCS; 2021-02-23)
PROC: 0JH63XZ Insertion of Tunneled Vascular Access Device into Chest Subcutaneous Tissue and Fascia, Percutaneous Approach (ICD-10-PCS; 2021-02-23)
PROC: 02H633Z Insertion of Infusion Device into Right Atrium, Percutaneous Approach (ICD-10-PCS; 2021-02-23)
DX: N39.0 Urinary tract infection, site not specified (principal); I50.31 Acute diastolic (congestive) heart failure; N18.6 End stage renal disease; I13.2 Hypertensive heart and chronic kidney disease with heart failure and with stage 5 chronic kidney disease, or end stage renal disease; Z16.12 Extended spectrum beta lactamase (ESBL) resistance; E66.01 Morbid (severe) obesity due to excess calories; D63.8 Anemia in other chronic diseases classified elsewhere; E11.22 Type 2 diabetes mellitus with diabetic chronic kidney disease; E78.5 Hyperlipidemia, unspecified; Z20.822 Contact with and (suspected) exposure to COVID-19; D69.6 Thrombocytopenia, unspecified; E87.5 Hyperkalemia; Z68.37 Body mass index [BMI] 37.0-37.9, adult; Z79.84 Long term (current) use of oral hypoglycemic drugs; Z86.73 Personal history of transient ischemic attack (TIA), and cerebral infarction without residual deficits; Z84.1 Family history of disorders of kidney and ureter
CPT/HCPCS: 36415; 36556; 36581; 71045; 77001; 80048; 80053; 80061; 81001; 82040; 82435; 82565; 82728; 82803; 82947; 82948; 83036; 83540; 83550; 83605; 83735; 83880; 84100; 84132; 84295; 84484; 84520; 85014; 85018; 85025; 85027; 85610; 85730; 86140; 86701; 86704; 86706; 86850; 86900; 86901; 86923; 87077; 87088; 87186; 87340; 87390; 87635; 90935; 93005; 93971; 97039; C1750; C1752; G0378; J0360; J0690; J0696; J1100; J1644; J1815; J2001; J2250; J2405; J2543; J2704; J2710; J2720; J2916; J3010; J3475; J3490; J7040; P9016

== ENCOUNTER 2021-02-28 15:10 | Emergency (ER) | payer OTHER ==
[~2021-02-28] VITALS: Ht 167.6 cm; Wt 97.5 kg
[~2021-02-28 15:10] MED LIST changes: -AMLO5TAB4 PO; -BENZ-39 PO; -FERS325 PO; -FURO40TA5 PO; -ROSU20TA31 PO; -SODI10PO2 PO; -SODI650T PO
[2021-02-28 15:49] LABS: BASOPHILS % (AUTO) 0.6 % (0.0-5.0); EOSINOPHILS % (AUTO) 4.1 % (0.0-8.0); HEMATOCRIT 28.6 % (36-48); LYMPHOCYTES % (AUTO) 18.8 % (21.0-51.0); MEAN CORPUSCULAR HEMOGLOBIN 27.9 pg (27.0-33.0); MEAN CORPUSCULAR HGB CONC 31.1 g/dL (32.0-36.0); MEAN CORPUSCULAR VOLUME 89.7 fL (79-99); MONOCYTES % (AUTO) 10.6 % (3.0-13.0); NEUTROPHILS % (AUTO) 65.7 % (40.0-77.0); PLATELET COUNT (AUTO) 217 K/uL (130-400); RED BLOOD CELL COUNT(AUTO) 3.19 MIL/uL (4.00-5.50); RED CELL DISTRIBUTION WIDTH 14.4 % (11.0-15.5); WHITE BLOOD COUNT (AUTO) 6.3 K/uL (4.8-10.8)
[2021-02-28 15:58] LABS: CREATININE 3.2 mg/dL (0.5-1.5); POTASSIUM 3.4 mmol/L (3.5-5.1)
[2021-02-28] MEDS ORDERED: CLINDAMYCIN IVPB 600MG/50ML 50 ML IV SCH (16:00)
[2021-02-28] MEDS ORDERED: HYDROCODONE/ACETAMINOPHEN 5/325 MG TAB PO SCH (16:00)
[2021-02-28 16:02] LABS: ALBUMIN 2.6 g/dL (3.5-5.0); BILIRUBIN,TOTAL 0.3 mg/dL (0.2-1.0); CRP QUANTITATIVE 16.9 mg/L (0.00-9.0); TOTAL PROTEIN, SERUM 6.9 g/dL (6.0-8.3)
[2021-02-28 16:16] LABS: APPEARANCE,URINE CLOUDY (CLEAR); BILIRUBIN,URINE NEGATIVE (NEGATIVE); COLOR,URINE YELLOW (YELLOW); GLUCOSE, URINE (UA) 100 mg/dL (NEGATIVE); KETONES,URINE NEGATIVE (NEGATIVE); LEUKOCYTE ESTERASE ,URINE SMALL (NEGATIVE); NITRATE,URINE NEGATIVE (NEGATIVE); OCCULT BLOOD,URINE TRACE-INTACT (NEGATIVE); PH,URINE 6.5 (5.0-8.0); PROTEIN,URINE 100 mg/dL (NEGATIVE); UROBILINOGEN,URINE 0.2 mg/dL (0.2-1.0)
[2021-02-28 16:19] LABS: BACTERIA,URINE Moderate /HPF (None Seen); WBC,URINE >100 /HPF (0-1)
[2021-02-28 16:21] LABS: SQUAMOUS EPITHELIAL CELL,UR Few /HPF (0-2)
[2021-02-28] MEDS ORDERED: ZOSYN 3.375GM +NS 50ML IV SCH (17:00)
[2021-02-28 17:01] VITALS: BP 153/54
[2021-02-28] MEDS ORDERED: CEPH500B PO (17:17)
[2021-02-28] MEDS ORDERED: ACET-2247 PO (17:17)
== END 2021-02-28 18:06 | disposition home or self-care (01) ==
LOC: EDH 15:10
DX: L76.34 Postprocedural seroma of skin and subcutaneous tissue following other procedure (principal); L03.114 Cellulitis of left upper limb; N39.0 Urinary tract infection, site not specified; I12.0 Hypertensive chronic kidney disease with stage 5 chronic kidney disease or end stage renal disease; E11.22 Type 2 diabetes mellitus with diabetic chronic kidney disease; N18.6 End stage renal disease; E78.00 Pure hypercholesterolemia, unspecified; E66.9 Obesity, unspecified; Z68.34 Body mass index [BMI] 34.0-34.9, adult; Z79.899 Other long term (current) drug therapy; Z99.2 Dependence on renal dialysis; Y84.1 Kidney dialysis as the cause of abnormal reaction of the patient, or of later complication, without mention of misadventure at the time of the procedure
CPT/HCPCS: 36415; 71045; 80053; 81001; 83605; 85025; 86140; 87040 ×2; 87077; 87088; 87186; 93971; 96365; 99285; J2543

== ENCOUNTER 2021-07-15 05:35 | Inpatient (IN) | payer OTHER ==
[~2021-07-15] VITALS: Ht 167.6 cm; Wt 105.0 kg
[2021-07-15] VITALS (39 sets, daily range): BP systolic 90–180; BP diastolic 43–103
[~2021-07-15 05:35] MED LIST changes: +ACET-2247 PO; +CEPH500B PO
[2021-07-15 06:04] LABS: BASOPHILS % (AUTO) 0.3 % (0.0-5.0); EOSINOPHILS % (AUTO) 0.8 % (0.0-8.0); HEMATOCRIT 29.4 % (36-48); LYMPHOCYTES % (AUTO) 2.8 % (21.0-51.0); MEAN CORPUSCULAR HEMOGLOBIN 30.1 pg (27.0-33.0); MEAN CORPUSCULAR HGB CONC 33.3 g/dL (32.0-36.0); MEAN CORPUSCULAR VOLUME 90.2 fL (79-99); MONOCYTES % (AUTO) 1.1 % (3.0-13.0); NEUTROPHILS % (AUTO) 94.5 % (40.0-77.0); PLATELET COUNT (AUTO) 224 K/uL (130-400); RED BLOOD CELL COUNT(AUTO) 3.26 MIL/uL (4.00-5.50); RED CELL DISTRIBUTION WIDTH 13.2 % (11.0-15.5)
[2021-07-15] MEDS ORDERED: 0.9%NACL 1000ML 1,000 ML IV ONE ×2 (06:10→06:15)
[2021-07-15] MEDS ORDERED: ZOSYN 3.375GM+NS 50ML 50 ML ONE (06:16)
[2021-07-15] MEDS ORDERED: 0.9%NACL 50ML 50 ML IV ONE (06:16)
[2021-07-15 06:22] LABS: ALBUMIN 2.3 g/dL (3.5-5.0); BILIRUBIN,TOTAL 0.6 mg/dL (0.2-1.0); CREATININE 7.8 mg/dL (0.5-1.5); POTASSIUM 3.6 mmol/L (3.5-5.1); TOTAL PROTEIN, SERUM 7.1 g/dL (6.0-8.3)
[2021-07-15] MEDS ORDERED: KETOROLAC 15MG/ML VIAL (15MG/ML) ONE (06:24)
[2021-07-15] MEDS ORDERED: ZOSYN 3.375GM +NS 50ML IV SCH ×2 (06:30→09:30)
[2021-07-15] MEDS ORDERED: KETOROLAC 15MG/ML VIAL (15MG/ML) IV SCH (06:30)
[2021-07-15] MEDS ORDERED: VANCOMYCIN 1G VIAL IVPB ONE (06:30)
[2021-07-15] MEDS ORDERED: ACETAMINOPHEN 500 MG TABLET PO SCH (06:30)
[2021-07-15] MEDS ORDERED: 0.9%NACL 1000ML 1,000 ML IV SCH ×3 (06:30→09:30)
[2021-07-15] MEDS ORDERED: 0.9% NACL 250ML 250 ML ONE (06:49)
[2021-07-15] MEDS ORDERED: VANCOMYCIN 1G/250ML KIT 250 ML IV SCH (07:00)
[2021-07-15] MEDS: NOREPINEPHRIN 4MG/NS 250ML 250 ML IV SCH (07:43)
[2021-07-15] MEDS ORDERED: ASPIRIN 325MG TAB ONE (08:21)
[2021-07-15 08:58] LABS: INR 1.05 (0.85-1.15); PROTHROMBIN TIME 11.4 SEC (9.6-11.6)
[2021-07-15] MEDS ORDERED: MIDODRINE HCL 5 MG TABLET ONE (09:01)
[2021-07-15] MEDS ORDERED: LIDOCAINE HCL-MPF 1% 2ML VIAL IV PRN (09:30)
[2021-07-15] MEDS ORDERED: NOREPINEPHRIN 4MG/NS 250ML 250 ML IV PRN (09:30)
[2021-07-15] MEDS ORDERED: CLONIDINE HCL 0.1 MG TABLET PO PRN (09:30)
[2021-07-15] MEDS ORDERED: DEXTROSE 50%-WATER 50 ML DISP.SYRIN IV PRN (09:30)
[2021-07-15] MEDS ORDERED: RENAL DOSE IV PRN (09:30)
[2021-07-15] MEDS ORDERED: POTASSIUM CHLORIDE 10% ELIXIR 20 MEQ/15 ML UDCUP PO PRN (09:30)
[2021-07-15] MEDS ORDERED: VANCOMYCIN PROTOCOL PER PHARMACY IV SCH (09:30)
[2021-07-15] MEDS ORDERED: ACETAMINOPHEN 650 MG SUPPOSITORY RC PRN (09:30)
[2021-07-15] MEDS ORDERED: POTASSIUM CHLORIDE 10MEQ/100ML 100 ML IV PRN (09:30)
[2021-07-15] MEDS ORDERED: GLUCAGON 1MG KIT 1 MG ML IM PRN (09:30)
[2021-07-15] MEDS ORDERED: HYDRALAZINE 20MG/ML VIAL IV PRN (09:30)
[2021-07-15] MEDS ORDERED: KCL 20 MEQ ERTAB PO PRN (09:30)
[2021-07-15] MEDS ORDERED: MAGNESIUM 2GM PREMIX 50ML 50 ML IV PRN (09:30)
[2021-07-15 09:32] LABS: RETICULOCYTE % (AUTO) 1.5 % (0.42-2.23)
[2021-07-15 10:04] LABS: % IRON SATURATION 8.3 % (22-44)
[2021-07-15] MEDS: INSULIN HUMULIN R 100 UNIT/ML 3ML SQ SCH ×2 (11:30→16:30)
[2021-07-15 13:36] LABS: APPEARANCE,URINE CLOUDY (CLEAR); BILIRUBIN,URINE NEGATIVE (NEGATIVE); COLOR,URINE YELLOW (YELLOW); GLUCOSE, URINE (UA) 250 mg/dL (NEGATIVE); KETONES,URINE 5 mg/dL (NEGATIVE); LEUKOCYTE ESTERASE ,URINE TRACE (NEGATIVE); NITRATE,URINE NEGATIVE (NEGATIVE); OCCULT BLOOD,URINE MODERATE (NEGATIVE); PH,URINE 5.5 (5.0-8.0); PROTEIN,URINE >=300 mg/dL (NEGATIVE); UROBILINOGEN,URINE 0.2 mg/dL (0.2-1.0)
[2021-07-15] MEDS ORDERED: AMILORIDE 5MG TAB PO SCH (14:00)
[2021-07-15 14:31] LABS: BACTERIA,URINE Moderate /HPF (None Seen); RBC,URINE 0-1 /HPF (0-1)
[2021-07-15] MEDS: MIDODRINE HCL 5 MG TABLET PO SCH ×2 (15:30→23:45)
[2021-07-15] MEDS: ACETAMINOPHEN 325 MG TAB PO PRN ×2 (18:28→23:56)
[2021-07-15] MEDS: HEPARIN 5,000 UNIT VIAL IJ PRN (18:44)
[2021-07-15] MEDS: ONDANSETRON 4MG INJ IVP PRN (20:47)
[2021-07-15] MEDS: ZOSYN 3.375GM +NS 50ML IV SCH (20:53)
[2021-07-15] MEDS ORDERED: EPOETIN ALFA-EPBX (ESRD) 10,000 UNIT/ML VIAL SQ ONE (21:00)
[2021-07-16] VITALS (9 sets, daily range): BP systolic 88–139; BP diastolic 36–70
[2021-07-16 04:38] LABS: HEPATITIS B SURFACE ANTIGEN Non-Reactive (Negative)
[2021-07-16 05:36] LABS: BASOPHILS % (AUTO) 0.2 % (0.0-5.0); EOSINOPHILS % (AUTO) 6.2 % (0.0-8.0); HEMATOCRIT 25.4 % (36-48); LYMPHOCYTES % (AUTO) 2.3 % (21.0-51.0); MEAN CORPUSCULAR HEMOGLOBIN 30.3 pg (27.0-33.0); MEAN CORPUSCULAR HGB CONC 33.9 g/dL (32.0-36.0); MEAN CORPUSCULAR VOLUME 89.4 fL (79-99); MONOCYTES % (AUTO) 6.9 % (3.0-13.0); PLATELET COUNT (AUTO) 181 K/uL (130-400); RED BLOOD CELL COUNT(AUTO) 2.84 MIL/uL (4.00-5.50); RED CELL DISTRIBUTION WIDTH 13.4 % (11.0-15.5); WHITE BLOOD COUNT (AUTO) 20.5 K/uL (4.8-10.8)
[2021-07-16 05:50] LABS: POTASSIUM 3.4 mmol/L (3.5-5.1)
[2021-07-16 05:51] LABS: MAGNESIUM 1.6 mg/dL (1.80-2.40)
[2021-07-16 05:52] LABS: ALBUMIN 1.9 g/dL (3.5-5.0)
[2021-07-16 05:54] LABS: BILIRUBIN,TOTAL 0.5 mg/dL (0.2-1.0)
[2021-07-16] MEDS: INSULIN HUMULIN R 100 UNIT/ML 3ML SQ SCH ×4 (05:58→20:29)
[2021-07-16 06:49] LABS: ABG BASE EXCESS -4.1 mmol/L (-2.0-3.0); ABG HCO3 20.5 mmol/L (21.0-28.0); ABG OXYGEN SATURATION 70.1 % (95.0-99.0); ABG PCO2 35 mmHg (32-45)
[2021-07-16] MEDS ORDERED: ASPIRIN 325MG TAB PO SCH (06:59)
[2021-07-16] MEDS ORDERED: ATORVASTATIN 40 MG TABLET PO SCH (07:00)
[2021-07-16] MEDS: MIDODRINE HCL 5 MG TABLET PO SCH ×3 (09:00→20:28)
[2021-07-16] MEDS ORDERED: IRON SUCROSE COMPLEX 100 MG in 0.9%NACL 50ML 50 ML IV SCH (09:00)
[2021-07-16] MEDS: NOREPINEPHRIN 4MG/NS 250ML 250 ML IV SCH (09:04)
[2021-07-16] MEDS: ZOSYN 3.375GM +NS 50ML IV SCH (09:13)
[2021-07-16] MEDS: ACETAMINOPHEN 325 MG TAB PO PRN (09:14)
[2021-07-16] MEDS: PANTOPRAZOLE 40 MG TAB DR PO SCH (09:14)
[2021-07-16] MEDS: ENOXAPARIN SODIUM 30 MG/0.3 ML SQ SCH (09:15)
[2021-07-16] MEDS: IRON SUCROSE COMPLEX 100 MG/5 ML VIAL IVP SCH (09:15)
[2021-07-16] MEDS: ONDANSETRON 4MG INJ IVP PRN (09:17)
[2021-07-16] MEDS ORDERED: MEROPENEM 1 GM VIAL IVP SCH (10:00)
[2021-07-16] MEDS: MEROPENEM 500 MG VIAL IVP SCH ×2 (12:00→22:13)
[2021-07-16] MEDS ORDERED: LIDOCAINE HCL 1% MDV 50ML VIAL ONE (15:08)
[2021-07-17 03:08] VITALS: BP 97/55
[2021-07-17 03:42] LABS: BASOPHILS % (AUTO) 0.2 % (0.0-5.0); EOSINOPHILS % (AUTO) 0.2 % (0.0-8.0); HEMATOCRIT 27.1 % (36-48); LYMPHOCYTES % (AUTO) 1.5 % (21.0-51.0); MEAN CORPUSCULAR HEMOGLOBIN 29.2 pg (27.0-33.0); MEAN CORPUSCULAR HGB CONC 32.8 g/dL (32.0-36.0); MEAN CORPUSCULAR VOLUME 88.9 fL (79-99); MONOCYTES % (AUTO) 2.2 % (3.0-13.0); PLATELET COUNT (AUTO) 158 K/uL (130-400); RED BLOOD CELL COUNT(AUTO) 3.05 MIL/uL (4.00-5.50); RED CELL DISTRIBUTION WIDTH 13.8 % (11.0-15.5); WHITE BLOOD COUNT (AUTO) 17.2 K/uL (4.8-10.8)
[2021-07-17 04:08] LABS: ALBUMIN 1.7 g/dL (3.5-5.0); CREATININE 6.6 mg/dL (0.5-1.5); MAGNESIUM 2.4 mg/dL (1.80-2.40)
[2021-07-17] MEDS: INSULIN HUMULIN R 100 UNIT/ML 3ML SQ SCH ×4 (05:07→21:00)
[2021-07-17 05:09] LABS: BILIRUBIN,TOTAL 0.7 mg/dL (0.2-1.0)
[2021-07-17 05:21] LABS: PHOSPHORUS 3.2 mg/dL (2.5-4.9)
[2021-07-17 08:00] VITALS: BP 108/57
[2021-07-17] MEDS: PANTOPRAZOLE 40 MG TAB DR PO SCH (08:43)
[2021-07-17] MEDS: MIDODRINE HCL 5 MG TABLET PO SCH ×3 (08:43→21:39)
[2021-07-17] MEDS: ASPIRIN 81 MG EC TAB PO SCH (08:43)
[2021-07-17] MEDS: IRON SUCROSE COMPLEX 100 MG/5 ML VIAL IVP SCH (08:43)
[2021-07-17] MEDS: ENOXAPARIN SODIUM 30 MG/0.3 ML SQ SCH (08:44)
[2021-07-17] MEDS ORDERED: VANCOMYCIN 500MG+NS 100ML 100 ML IV SCH (10:00)
[2021-07-17] MEDS: MEROPENEM 500 MG VIAL IVP SCH ×2 (10:40→21:39)
[2021-07-17 12:00] VITALS: BP 130/63
[2021-07-17 16:00] VITALS: BP 104/47
[2021-07-17] MEDS: ACETAMINOPHEN 325 MG TAB PO PRN (18:00)
[2021-07-17 18:54] VITALS: BP 145/72
[2021-07-17 23:09] VITALS: BP 128/69
[2021-07-18] VITALS (26 sets, daily range): BP systolic 91–165; BP diastolic 41–69
[2021-07-18 03:45] LABS: BASOPHILS % (AUTO) 0.4 % (0.0-5.0); EOSINOPHILS % (AUTO) 0.5 % (0.0-8.0); HEMATOCRIT 27.3 % (36-48); LYMPHOCYTES % (AUTO) 1.8 % (21.0-51.0); MEAN CORPUSCULAR HEMOGLOBIN 29.9 pg (27.0-33.0); MEAN CORPUSCULAR HGB CONC 34.1 g/dL (32.0-36.0); MEAN CORPUSCULAR VOLUME 87.8 fL (79-99); MONOCYTES % (AUTO) 0.8 % (3.0-13.0); NEUTROPHILS % (AUTO) 94.1 % (40.0-77.0); NUCLEATED RED BLOOD CELLS 0.2 % (0.0-0.19); PLATELET COUNT (AUTO) 131 K/uL (130-400); RED BLOOD CELL COUNT(AUTO) 3.11 MIL/uL (4.00-5.50); RED CELL DISTRIBUTION WIDTH 13.8 % (11.0-15.5); WHITE BLOOD COUNT (AUTO) 8.4 K/uL (4.8-10.8)
[2021-07-18 03:55] LABS: INR 0.94 (0.85-1.15); PROTHROMBIN TIME 10.3 SEC (9.6-11.6)
[2021-07-18 03:56] LABS: ALBUMIN 1.9 g/dL (3.5-5.0); BILIRUBIN,TOTAL 0.8 mg/dL (0.2-1.0); MAGNESIUM 2.4 mg/dL (1.80-2.40); PHOSPHORUS 4.2 mg/dL (2.5-4.9); POTASSIUM 3.6 mmol/L (3.5-5.1); TOTAL PROTEIN, SERUM 6.5 g/dL (6.0-8.3)
[2021-07-18 03:57] LABS: PARTIAL THROMBOPLASTIN TIME 28.2 SEC (26.3-35.5)
[2021-07-18 04:05] LABS: CREATININE 8.1 mg/dL (0.5-1.5)
[2021-07-18] MEDS: INSULIN HUMULIN R 100 UNIT/ML 3ML SQ SCH ×4 (06:06→21:13)
[2021-07-18] MEDS: PANTOPRAZOLE 40 MG TAB DR PO SCH (09:00)
[2021-07-18] MEDS: ASPIRIN 81 MG EC TAB PO SCH (09:00)
[2021-07-18] MEDS: MIDODRINE HCL 5 MG TABLET PO SCH ×3 (09:00→21:13)
[2021-07-18] MEDS: ENOXAPARIN SODIUM 30 MG/0.3 ML SQ SCH (09:00)
[2021-07-18] MEDS: IRON SUCROSE COMPLEX 100 MG/5 ML VIAL IVP SCH (09:33)
[2021-07-18] MEDS: MEROPENEM 500 MG VIAL IVP SCH ×2 (09:58→22:11)
[2021-07-18] MEDS ORDERED: IOHEXOL-350 75 ML VIAL IV ONE (10:39)
[2021-07-18] MEDS ORDERED: LIDOCAINE HCL 1% 20 ML VIAL ONE (15:26)
[2021-07-18] MEDS ORDERED: HEPARIN 1,000 UNIT VIAL ONE ×2 (15:27→15:36)
[2021-07-19] VITALS (7 sets, daily range): BP systolic 97–149; BP diastolic 57–73
[2021-07-19 03:58] LABS: ALBUMIN 1.7 g/dL (3.5-5.0); BILIRUBIN,TOTAL 0.4 mg/dL (0.2-1.0); CREATININE 5.3 mg/dL (0.5-1.5); MAGNESIUM 2.2 mg/dL (1.80-2.40); POTASSIUM 3.5 mmol/L (3.5-5.1); TOTAL PROTEIN, SERUM 6.2 g/dL (6.0-8.3)
[2021-07-19 03:59] LABS: BASOPHILS % (AUTO) 0.6 % (0.0-5.0); EOSINOPHILS % (AUTO) 0.5 % (0.0-8.0); HEMATOCRIT 26.1 % (36-48); LYMPHOCYTES % (AUTO) 6.1 % (21.0-51.0); MEAN CORPUSCULAR HGB CONC 34.1 g/dL (32.0-36.0); MONOCYTES % (AUTO) 7.8 % (3.0-13.0); NEUTROPHILS % (AUTO) 83.3 % (40.0-77.0); NUCLEATED RED BLOOD CELLS 0.2 % (0.0-0.19); PLATELET COUNT (AUTO) 110 K/uL (130-400); RED BLOOD CELL COUNT(AUTO) 3.07 MIL/uL (4.00-5.50); RED CELL DISTRIBUTION WIDTH 13.8 % (11.0-15.5); WHITE BLOOD COUNT (AUTO) 15.7 K/uL (4.8-10.8)
[2021-07-19] MEDS: INSULIN HUMULIN R 100 UNIT/ML 3ML SQ SCH ×4 (06:07→20:27)
[2021-07-19] MEDS: MIDODRINE HCL 5 MG TABLET PO SCH ×3 (09:00→20:26)
[2021-07-19] MEDS: PANTOPRAZOLE 40 MG TAB DR PO SCH (09:07)
[2021-07-19] MEDS: ASPIRIN 81 MG EC TAB PO SCH (09:07)
[2021-07-19] MEDS: IRON SUCROSE COMPLEX 100 MG/5 ML VIAL IVP SCH (09:07)
[2021-07-19] MEDS: MEROPENEM 500 MG VIAL IVP SCH ×2 (09:08→20:59)
[2021-07-19] MEDS: ENOXAPARIN SODIUM 30 MG/0.3 ML SQ SCH (09:08)
[2021-07-19] MEDS: ACETAMINOPHEN 325 MG TAB PO PRN ×2 (09:39→20:59)
[2021-07-20] VITALS (15 sets, daily range): BP systolic 102–174; BP diastolic 58–85
[2021-07-20] MEDS: ACETAMINOPHEN 325 MG TAB PO PRN ×2 (03:04→16:40)
[2021-07-20 05:01] LABS: BASOPHILS % (AUTO) 0.7 % (0.0-5.0); HEMATOCRIT 26.9 % (36-48); LYMPHOCYTES % (AUTO) 12.1 % (21.0-51.0); MEAN CORPUSCULAR HEMOGLOBIN 29.8 pg (27.0-33.0); MEAN CORPUSCULAR HGB CONC 34.9 g/dL (32.0-36.0); MEAN CORPUSCULAR VOLUME 85.4 fL (79-99); MONOCYTES % (AUTO) 8.8 % (3.0-13.0); NEUTROPHILS % (AUTO) 73.5 % (40.0-77.0); PLATELET COUNT (AUTO) 109 K/uL (130-400); RED BLOOD CELL COUNT(AUTO) 3.15 MIL/uL (4.00-5.50); RED CELL DISTRIBUTION WIDTH 14.2 % (11.0-15.5); WHITE BLOOD COUNT (AUTO) 13.3 K/uL (4.8-10.8)
[2021-07-20 05:16] LABS: MAGNESIUM 2.5 mg/dL (1.80-2.40); POTASSIUM 3.6 mmol/L (3.5-5.1)
[2021-07-20] MEDS: INSULIN HUMULIN R 100 UNIT/ML 3ML SQ SCH ×3 (06:41→16:30)
[2021-07-20] MEDS: MIDODRINE HCL 5 MG TABLET PO SCH ×3 (09:00→19:56)
[2021-07-20] MEDS: MEROPENEM 500 MG VIAL IVP SCH (09:13)
[2021-07-20] MEDS: PANTOPRAZOLE 40 MG TAB DR PO SCH (09:13)
[2021-07-20] MEDS: ASPIRIN 81 MG EC TAB PO SCH (09:13)
[2021-07-20] MEDS: ENOXAPARIN SODIUM 30 MG/0.3 ML SQ SCH (09:13)
[2021-07-20] MEDS: IRON SUCROSE COMPLEX 100 MG/5 ML VIAL IVP SCH (09:13)
[2021-07-20] MEDS: HEPARIN 5,000 UNIT VIAL IJ PRN (13:09)
== END 2021-07-20 20:43 | DRG 280 ==
LOC: EDH 05:35 → EDHIP 09:06 → 2CH 13:54 → 2DH 23:24 → 2AH 23:27
PROVIDERS: ADMIT Internal Medicine Pulmonary Disease; ATTEND Internal Medicine Pulmonary Disease
PROC: 5A1D70Z Performance of Urinary Filtration, Intermittent, Less than 6 Hours Per Day (ICD-10-PCS; 2021-07-15)
PROC: 02PYX3Z Removal of Infusion Device from Great Vessel, External Approach (ICD-10-PCS; 2021-07-16)
PROC: 05HM33Z Insertion of Infusion Device into Right Internal Jugular Vein, Percutaneous Approach (ICD-10-PCS; principal; 2021-07-18)
PROC: B5131ZA Fluoroscopy of Right Jugular Veins using Low Osmolar Contrast, Guidance (ICD-10-PCS; 2021-07-18)
PROC: B543ZZA Ultrasonography of Right Jugular Veins, Guidance (ICD-10-PCS; 2021-07-18)
PROC: 5A1D70Z Performance of Urinary Filtration, Intermittent, Less than 6 Hours Per Day (ICD-10-PCS; 2021-07-18)
PROC: 5A1D70Z Performance of Urinary Filtration, Intermittent, Less than 6 Hours Per Day (ICD-10-PCS; 2021-07-20)
DX: T80.211A Bloodstream infection due to central venous catheter, initial encounter (principal); A41.50 Gram-negative sepsis, unspecified; I21.A1 Myocardial infarction type 2; R65.21 Severe sepsis with septic shock; R57.1 Hypovolemic shock; N18.6 End stage renal disease; N13.6 Pyonephrosis; I12.0 Hypertensive chronic kidney disease with stage 5 chronic kidney disease or end stage renal disease; I69.351 Hemiplegia and hemiparesis following cerebral infarction affecting right dominant side; Z20.822 Contact with and (suspected) exposure to COVID-19; E86.0 Dehydration; E66.01 Morbid (severe) obesity due to excess calories; E11.22 Type 2 diabetes mellitus with diabetic chronic kidney disease; E11.51 Type 2 diabetes mellitus with diabetic peripheral angiopathy without gangrene; B96.20 Unspecified Escherichia coli [E. coli] as the cause of diseases classified elsewhere; Y83.8 Other surgical procedures as the cause of abnormal reaction of the patient, or of later complication, without mention of misadventure at the time of the procedure; E87.6 Hypokalemia; Z99.2 Dependence on renal dialysis; Z89.421 Acquired absence of other right toe(s); Y92.89 Other specified places as the place of occurrence of the external cause; Z79.899 Other long term (current) drug therapy; Z82.49 Family history of ischemic heart disease and other diseases of the circulatory system; Z83.3 Family history of diabetes mellitus; Z68.37 Body mass index [BMI] 37.0-37.9, adult
CPT/HCPCS: 36415; 36556; 36589; 36600; 71045; 73120; 74176; 74178; 77001; 80048; 80053; 80202; 81001; 82435; 82607; 82728; 82803; 82947; 82948; 83605; 83735; 84100; 84132; 84145; 84295; 84484; 85018; 85025; 85610; 85730; 86704; 86706; 87040; 87070; 87076; 87077; 87088; 87186; 87340; 87635; 87804; 90935; 93005; 93306; 93356; 99291; C1752; C9803; G0378; J1644; J1650; J1756; J1815; J1885; J2185; J2405; J2543; J3370; J3475; J3490; J7030; J7050; J7070; Q9967

== ENCOUNTER 2021-08-12 08:00 | Day surgery (SDC) | payer OTHER ==
[2021-08-09 09:46] LABS: BASOPHILS % (AUTO) 1.4 % (0.0-5.0); EOSINOPHILS % (AUTO) 3.7 % (0.0-8.0); HEMATOCRIT 25.9 % (36-48); MEAN CORPUSCULAR HEMOGLOBIN 31.8 pg (27.0-33.0); MEAN CORPUSCULAR HGB CONC 31.7 g/dL (32.0-36.0); MEAN CORPUSCULAR VOLUME 100.4 fL (79-99); MONOCYTES % (AUTO) 11.1 % (3.0-13.0); NEUTROPHILS % (AUTO) 57.3 % (40.0-77.0); PLATELET COUNT (AUTO) 295 K/uL (130-400); RED BLOOD CELL COUNT(AUTO) 2.58 MIL/uL (4.00-5.50); RED CELL DISTRIBUTION WIDTH 16.8 % (11.0-15.5); WHITE BLOOD COUNT (AUTO) 5.6 K/uL (4.8-10.8)
[2021-08-09 10:01] LABS: CREATININE 5.5 mg/dL (0.5-1.5); POTASSIUM 4.4 mmol/L (3.5-5.1)
[2021-08-09 10:03] LABS: INR 0.93 (0.85-1.15); PROTHROMBIN TIME 10.2 SEC (9.6-11.6)
[2021-08-09 10:32] LABS: PARTIAL THROMBOPLASTIN TIME 27.3 SEC (26.3-35.5)
[2021-08-11 13:40] VITALS: BP 191/94
[2021-08-12] VITALS (17 sets, daily range): BP systolic 140–170; BP diastolic 65–78
[~2021-08-12] VITALS: Ht 160 cm; Wt 102.2 kg
[2021-08-12] MEDS: CEFAZOLIN SODIUM 1 GM VIAL IVP SCH ×2 (06:00→11:00)
[~2021-08-12 08:00] MED LIST changes: -ACET-2247 PO; -CEPH500B PO; -CHOL200074 PO; -DOCU-116 PO; +FERS325 PO; -FOLI0.8T2 PO; +FOLI1TAB85 PO; +INSULIN SQ; -LEVO50TA11 PO; +LISI20TA24 PO; +METO5TAB2 PO; +ROSU20TA31 PO; +SERT-438 PO
[2021-08-12] MEDS ORDERED: 0.9% NACL 500ML IV.SOLN 500 ML IV ONE (09:10)
[2021-08-12] MEDS ORDERED: KETAMINE 50MG/ML SYRINGE 50 MG/ML DISP.SYRIN IV ONE (10:10)
[2021-08-12] MEDS ORDERED: SUCCINYLCHOLINE 200MG/10ML SYR ONE (10:12)
[2021-08-12] MEDS ORDERED: DEXAMETHASONE SOD PHOSPHATE 10MG/ML 1ML VIAL ONE (10:12)
[2021-08-12] MEDS ORDERED: PROPOFOL 10 MG/ML 20ML VIAL IV ONE (10:12)
[2021-08-12] MEDS ORDERED: ONDANSETRON 4MG INJ ONE ×2 (10:13→14:06)
[2021-08-12] MEDS ORDERED: GLYCOPYRROLATE 1 MG/5 ML SYRINGE ONE (10:13)
[2021-08-12] MEDS ORDERED: NEOSTIGMINE 5MG/5ML SYR IV ONE (10:13)
[2021-08-12] MEDS ORDERED: ROCURONIUM 10MG/1ML SYR 10 MG/ML ML ONE (10:13)
[2021-08-12] MEDS ORDERED: MIDAZOLAM HCL 1 MG/ML 2ML VIAL ONE (10:13)
[2021-08-12] MEDS ORDERED: FENTANYL CITRATE PF 50 MCG/1 ML 2ML VIAL ONE (10:14)
[2021-08-12] MEDS ORDERED: EPHEDRINE SULFATE 50 MG/ML AMPULE ONE (12:07)
[2021-08-12] MEDS ORDERED: MEPERIDINE-PF 25 MG/ML SYG ONE (13:18)
== END 2021-08-12 14:44 | disposition home or self-care (01) ==
LOC: DAH 08:00
PROVIDERS: ATTEND Student in an Organized Health Care Education/Training Program
DX: E11.22 Type 2 diabetes mellitus with diabetic chronic kidney disease (principal); I12.0 Hypertensive chronic kidney disease with stage 5 chronic kidney disease or end stage renal disease; N18.6 End stage renal disease; E66.01 Morbid (severe) obesity due to excess calories; E78.5 Hyperlipidemia, unspecified; D64.9 Anemia, unspecified; Z83.3 Family history of diabetes mellitus; Z98.890 Other specified postprocedural states; Z99.2 Dependence on renal dialysis; Z79.899 Other long term (current) drug therapy; Z86.73 Personal history of transient ischemic attack (TIA), and cerebral infarction without residual deficits; Z79.01 Long term (current) use of anticoagulants; Z68.39 Body mass index [BMI] 39.0-39.9, adult
CPT/HCPCS: 36415 ×2; 36830; 71045; 80048; 82948 ×2; 84132; 84703; 85025; 85610; 85730; 86850 ×2; 86900 ×2; 86901 ×2; 87635; 93005; A4215; A4221; A4222; A4223; A4600; A4649; A4663; A6260; C1713 ×2; C1768; C9803; G0168; J0330; J0690; J1100; J1644; J2175; J2250; J2405 ×2; J2704; J2710; J3010; J3490 ×3; J7040

== ENCOUNTER 2023-07-12 06:51 | Inpatient (IN) | payer OTHER, MEDICARE ==
[2023-07-12] VITALS (34 sets, daily range): BP systolic 112–188; BP diastolic 51–83; PULSE 68–78; RESP 15–20; TEMP 97.8–98; O2SAT 96
[~2023-07-12] VITALS: Ht 167.6 cm; Wt 98.2 kg
[~2023-07-12 06:51] MED LIST changes: -ROSU20TA31 PO; +ROSU20TA73 PO
[2023-07-12] MEDS: 0.9%NACL 1000ML 1,000 ML IV ONE (09:00)
[2023-07-12] MEDS ORDERED: AURYXIA PO ×2 (09:08→14:45)
[2023-07-12] MEDS ORDERED: CALCIUM + D3 PO (09:08)
[2023-07-12] MEDS ORDERED: PROPOFOL 10 MG/ML 20ML VIAL IV ONE (10:51)
[2023-07-12 12:19] LABS: BASOPHILS # (AUTO) 0.03 K/uL (0.00-0.20); BASOPHILS % (AUTO) 1.2 % (0.0-5.0); EOSINOPHILS # (AUTO) 0.06 K/uL (0.00-0.70); EOSINOPHILS % (AUTO) 2.5 % (0.0-8.0); HEMATOCRIT 28.4 % (36-48); LYMPHOCYTES # (AUTO) 0.4 K/uL (1.0-4.8); LYMPHOCYTES % (AUTO) 14.4 % (21.0-51.0); MEAN CORPUSCULAR HEMOGLOBIN 32.2 pg (27.0-33.0); MEAN CORPUSCULAR VOLUME 100.4 fL (79-99); MONOCYTES # (AUTO) 0.4 K/uL (0.1-1.0); MONOCYTES % (AUTO) 17.3 % (3.0-13.0); NEUTROPHILS # (AUTO) 1.6 K/uL (1.8-7.7); NEUTROPHILS % (AUTO) 64.6 % (40.0-77.0); PLATELET COUNT (AUTO) 190 K/uL (130-400); RED BLOOD CELL COUNT(AUTO) 2.83 MIL/uL (4.00-5.50); RED CELL DISTRIBUTION WIDTH 15.9 % (11.0-15.5); WHITE BLOOD COUNT (AUTO) 2.4 K/uL (4.8-10.8)
[2023-07-12] MEDS ORDERED: HYDRALAZINE 20MG/ML VIAL IV PRN (12:30)
[2023-07-12 12:59] LABS: BAND NEUTROPHILS % (MANUAL) 3 % (0-2); BASOPHILS % (MANUAL) 1 % (0-2); EOSINOPHILS % (MANUAL) 2 % (1-6); LYMPHOCYTES % (MANUAL) 13 % (22-44); MAN.DIFF COMMENT-IMPRESSION MANUAL DIFFERENTIAL; MONOCYTES % (MANUAL) 18 % (2-9); PLATELET MORPHOLOGY COMMENT ADEQUATE; SEGMENTED NEUTROPHILS % 63 % (40-70); TOTAL CELLS COUNTED 100
[2023-07-12 13:10] LABS: HEMOGLOBIN A1C 5.4 % (4.0-6.0)
[2023-07-12 13:24] LABS: THYROID STIMULATING HORMONE 4.84 uIU/mL (0.36-3.74)
[2023-07-12 13:25] LABS: CREATININE 8.1 mg/dL (0.5-1.0)
[2023-07-12] MEDS: LISINOPRIL 20 MG TABLET PO ONE (13:34)
[2023-07-12] MEDS ORDERED: LISI10TA24 PO (14:45)
[2023-07-12] MEDS ORDERED: HYDR100T27 PO (14:45)
[2023-07-12] MEDS ORDERED: INSU3INS3 SQ (16:01)
[2023-07-12] MEDS ORDERED: SUCRALFATE PR (16:11)
[2023-07-12] MEDS: PEG 3350/NA SULF,BICARB,CL/KCL 4000 ML SOLN PO ONE (16:28)
[2023-07-12 17:56] LABS: HEMATOCRIT 23.8 % (36-48)
[2023-07-12] MEDS: HYDRALAZINE 25MG TABLET PO SCH (20:13)
[2023-07-12 22:35] LABS: HEMATOCRIT 27.7 % (36-48)
[2023-07-12] MEDS: ACETAMINOPHEN 500 MG TABLET PO PRN (23:49)
[2023-07-13] VITALS (43 sets, daily range): BP systolic 89–169; BP diastolic 51–82; PULSE 65–81; RESP 14–20; TEMP 98–98.1; O2SAT 96
[2023-07-13 04:14] LABS: HEPATITIS B CORE AB TOTAL Non-Reactive (Nonreactive); HEPATITIS B SURFACE ANTIBODY Negative (Reactive); HEPATITIS B SURFACE ANTIGEN Non-Reactive (Nonreactive)
[2023-07-13 04:39] LABS: HEMATOCRIT 24.7 % (36-48); MEAN CORPUSCULAR HEMOGLOBIN 31.1 pg (27.0-33.0); MEAN CORPUSCULAR VOLUME 97.2 fL (79-99); RED BLOOD CELL COUNT(AUTO) 2.54 MIL/uL (4.00-5.50); RED CELL DISTRIBUTION WIDTH 15.5 % (11.0-15.5); WHITE BLOOD COUNT (AUTO) 2.7 K/uL (4.8-10.8)
[2023-07-13 05:35] LABS: ALBUMIN 2.7 g/dL (3.5-5.0); BILIRUBIN,TOTAL 0.2 mg/dL (0.2-1.0); PHOSPHORUS 4.2 mg/dL (2.5-4.9); POTASSIUM 4.1 mmol/L (3.5-5.1); TOTAL PROTEIN, SERUM 6.1 g/dL (6.0-8.3)
[2023-07-13 06:52] LABS: INR <= 0.93 (0.85-1.15); PROTHROMBIN TIME 10.3 SEC (9.6-11.6)
[2023-07-13 06:53] LABS: PARTIAL THROMBOPLASTIN TIME 27.3 SEC (26.3-35.5)
[2023-07-13] MEDS: Vitamin B Complex/Vit C/Folic Acid PO SCH (08:24)
[2023-07-13] MEDS: LISINOPRIL 20 MG TABLET PO SCH (08:37)
[2023-07-13] MEDS ORDERED: LISINOPRIL 20 MG TABLET PO SCH (09:00)
[2023-07-13 11:12] LABS: HEMATOCRIT 25.3 % (36-48)
[2023-07-13] MEDS: SUCRALFATE 1 GM TABLET PO SCH (12:00)
[2023-07-13] MEDS: PANTOPRAZOLE 40 MG/VIAL IVP SCH (12:19)
[2023-07-13] MEDS ORDERED: PROPOFOL 10 MG/ML 20ML VIAL IV ONE (14:52)
[2023-07-13] MEDS ORDERED: LIDOCAINE PF 100MG/5ML (2%) SYRINGE 5ML ONE (14:52)
[2023-07-13] MEDS: DEXTROSE 50%-WATER 50 ML DISP.SYRIN IV ONE (15:33)
[2023-07-13 17:21] LABS: HEMATOCRIT 24.7 % (36-48)
[2023-07-14] VITALS: BP 126/57; PULSE 77; RESP 18
[2023-07-14 04:00] VITALS: BP 145/68; PULSE 83; RESP 18
[2023-07-14 05:55] LABS: BASOPHILS # (AUTO) 0.03 K/uL (0.00-0.20); BASOPHILS % (AUTO) 0.7 % (0.0-5.0); EOSINOPHILS # (AUTO) 0.12 K/uL (0.00-0.70); EOSINOPHILS % (AUTO) 2.9 % (0.0-8.0); IMMATURE GRANULOCYTE ABSOLUTE 0.01 K/uL (0-1); LYMPHOCYTES # (AUTO) 0.4 K/uL (1.0-4.8); LYMPHOCYTES % (AUTO) 9.4 % (21.0-51.0); MEAN CORPUSCULAR HEMOGLOBIN 31.4 pg (27.0-33.0); MEAN CORPUSCULAR HGB CONC 32.1 g/dL (32.0-36.0); MONOCYTES # (AUTO) 0.4 K/uL (0.1-1.0); MONOCYTES % (AUTO) 8.9 % (3.0-13.0); NEUTROPHILS # (AUTO) 3.2 K/uL (1.8-7.7); NEUTROPHILS % (AUTO) 77.9 % (40.0-77.0); PLATELET COUNT (AUTO) 208 K/uL (130-400); RED BLOOD CELL COUNT(AUTO) 2.96 MIL/uL (4.00-5.50); RED CELL DISTRIBUTION WIDTH 15.5 % (11.0-15.5); WHITE BLOOD COUNT (AUTO) 4.2 K/uL (4.8-10.8)
[2023-07-14 06:17] LABS: CREATININE 4.2 mg/dL (0.5-1.0); MAGNESIUM 1.8 mg/dL (1.80-2.40); POTASSIUM 3.4 mmol/L (3.5-5.1)
[2023-07-14] MEDS ORDERED: SUCRALFATE PR (07:02)
[2023-07-14 08:00] VITALS: BP 151/48; PULSE 76; RESP 18; O2SAT 96
== END 2023-07-14 09:30 | disposition home or self-care (01) | DRG 377 ==
LOC: DAH 06:51 → ENDO 06:51 → DAHIP 06:52 → 2DH 12:44 → 3AH 07-13 16:00
PROVIDERS: ADMIT Internal Medicine; ATTEND Internal Medicine
PROC: 5A1D70Z Performance of Urinary Filtration, Intermittent, Less than 6 Hours Per Day (ICD-10-PCS; principal; 2023-07-12)
PROC: 0DJD8ZZ Inspection of Lower Intestinal Tract, Via Natural or Artificial Opening Endoscopic (ICD-10-PCS; 2023-07-12)
PROC: 5A1D70Z Performance of Urinary Filtration, Intermittent, Less than 6 Hours Per Day (ICD-10-PCS; 2023-07-13)
PROC: 0DBP8ZX Excision of Rectum, Via Natural or Artificial Opening Endoscopic, Diagnostic (ICD-10-PCS; 2023-07-13)
PROC: 0DBN8ZX Excision of Sigmoid Colon, Via Natural or Artificial Opening Endoscopic, Diagnostic (ICD-10-PCS; 2023-07-13)
DX: K92.1 Melena (principal); N18.6 End stage renal disease; D62 Acute posthemorrhagic anemia; E44.1 Mild protein-calorie malnutrition; K62.6 Ulcer of anus and rectum; I12.0 Hypertensive chronic kidney disease with stage 5 chronic kidney disease or end stage renal disease; N17.9 Acute kidney failure, unspecified; E66.9 Obesity, unspecified; E11.22 Type 2 diabetes mellitus with diabetic chronic kidney disease; E11.21 Type 2 diabetes mellitus with diabetic nephropathy; Z68.36 Body mass index [BMI] 36.0-36.9, adult; Z85.43 Personal history of malignant neoplasm of ovary; Z85.841 Personal history of malignant neoplasm of brain; Z92.21 Personal history of antineoplastic chemotherapy; Z99.2 Dependence on renal dialysis; K62.7 Radiation proctitis
CPT/HCPCS: 36415; 45378; 45380; 80048; 80053; 82607; 82728; 82746; 82948; 83036; 83540; 83550; 83735; 84100; 84443; 84703; 85014; 85018; 85025; 85027; 85610; 85730; 86704; 86706; 86850; 86900; 86901; 87340; 90935; A4606; C9113; G0378; J2001; J2704; J7030; J7070; A4215; A4221; A4222; A4223; A4620; A4663; A7002; J3490

== ENCOUNTER 2023-08-28 06:01 | Day surgery (SDC) | payer OTHER, MEDICARE ==
[~2023-08-28] VITALS: Ht 152.4 cm; Wt 101.6 kg
[2023-08-28] VITALS (11 sets, daily range): BP systolic 140–179; BP diastolic 50–84; PULSE 64–76; RESP 14–17
[~2023-08-28 06:01] MED LIST changes: +AURYXIA PO; +CALCIUM + D3 PO; -FERS325 PO; -FOLI1TAB85 PO; +HYDR100T15 PO; -HYDR100T27 PO; +INSU3INS3 SQ; -INSULIN SQ; +LISI10TA24 PO; -LISI20TA24 PO; -METO5TAB2 PO; -ROSU20TA73 PO; -SERT-438 PO; +SUCRALFATE PR
[2023-08-28] MEDS: 0.9%NACL 1000ML 1,000 ML IV ONE (08:14)
[2023-08-28] MEDS ORDERED: LINA145C PO (08:30)
[2023-08-28] MEDS ORDERED: LISI20TA24 PO (08:30)
[2023-08-28] MEDS ORDERED: CALC-1009 PO (08:30)
[2023-08-28] MEDS ORDERED: AURYXIA PO ×2 (08:30)
[2023-08-28] MEDS ORDERED: ACET-66 PO (08:30)
[2023-08-28] MEDS ORDERED: PANT20TA18 PO (08:30)
[2023-08-28] MEDS ORDERED: LISI10TA24 PO (08:30)
[2023-08-28] MEDS ORDERED: HYDR100T15 PO (08:30)
[2023-08-28] MEDS ORDERED: PROPOFOL 10 MG/ML 20ML VIAL IV ONE ×2 (08:48→09:20)
== END 2023-08-28 10:25 | disposition home or self-care (01) ==
LOC: DAH 06:01 → ENDO 06:01
PROVIDERS: ATTEND Internal Medicine Gastroenterology
DX: K62.7 Radiation proctitis (principal); K62.89 Other specified diseases of anus and rectum; K55.20 Angiodysplasia of colon without hemorrhage; K92.1 Melena; D64.9 Anemia, unspecified; I10 Essential (primary) hypertension; E11.9 Type 2 diabetes mellitus without complications; E78.2 Mixed hyperlipidemia; N19 Unspecified kidney failure; F32.A Depression, unspecified; F41.9 Anxiety disorder, unspecified; Z79.4 Long term (current) use of insulin; Z79.899 Other long term (current) drug therapy; Z83.3 Family history of diabetes mellitus; Z82.3 Family history of stroke; Z82.49 Family history of ischemic heart disease and other diseases of the circulatory system; Z80.59 Family history of malignant neoplasm of other urinary tract organ; Z98.41 Cataract extraction status, right eye; Z98.890 Other specified postprocedural states
CPT/HCPCS: 84703; 36415; 45380; 82948; J7030 ×2; J2704 ×2; A4620; A4215 ×2; A4223; A4222; A4221; A4663; A4606; J3490

== ENCOUNTER 2024-04-10 05:48 | Day surgery (SDC) | payer OTHER, MEDICARE ==
[~2024-04-10] VITALS: Ht 160 cm; Wt 108.9 kg
[2024-04-10] VITALS (13 sets, daily range): BP systolic 137–155; BP diastolic 51–64; PULSE 70–85; RESP 13–18; TEMP 97–98.1
[~2024-04-10 05:48] MED LIST changes: +ACET-66 PO; +LINA145C PO; +LISI20TA24 PO; +PANT20TA18 PO; -SUCRALFATE PR
[2024-04-10] MEDS ORDERED: 0.9%NACL 1000ML 0 ML IV ONE (06:16)
[2024-04-10] MEDS ORDERED: 0.9%NACL 1000ML 1,000 ML IV ONE (06:17)
[2024-04-10] MEDS ORDERED: ASPI-1005 PO (06:43)
[2024-04-10] MEDS ORDERED: AZIT500T4 PO (06:43)
[2024-04-10] MEDS ORDERED: PRED20TA3 PO (06:44)
[2024-04-10] MEDS ORDERED: DOCU100C33 PO (06:44)
[2024-04-10] MEDS: 0.9% NACL 500ML IV.SOLN 500 ML IV ONE (07:17)
[2024-04-10] MEDS ORDERED: LIDOCAINE HCL 1% 20 ML VIAL ONE (07:21)
[2024-04-10] MEDS ORDERED: proPOFol 10 MG/ML 20ML VIAL IV ONE ×2 (07:21→07:30)
[2024-04-10] MEDS: FENTanyl CITRate PF 50 MCG/1 ML 2ML VIAL ONE (08:05)
--- NOTE | 2024-04-10 08:57 | NUR ---
PIV REMOVED WITH CATHETER TIP INTACT. DENIES CURRENT PAIN OR NAUSEA. VOICED UNDERSTANDING IN FULL AND COMPLETE DISCHARGE INSTRUCTIONS GIVEN BOTH VERBALLY AND IN WRITING TO PATIENT AND FAMILY. ALL QUESTIONS ANSWERED. NG TO GI INSTRUCTIONS AND FOLLOW UP. W/C TO POV WITH FAMILY TO HOME DISCHARGE DONE IN [place] BY DAMARIS OTOOLE
== END 2024-04-10 08:55 | disposition home or self-care (01) ==
LOC: DAH 05:48 → ENDO 05:48
PROVIDERS: ATTEND Internal Medicine Gastroenterology
DX: R19.4 Change in bowel habit (principal); K62.7 Radiation proctitis; K55.21 Angiodysplasia of colon with hemorrhage; K57.30 Diverticulosis of large intestine without perforation or abscess without bleeding; K92.1 Melena; I10 Essential (primary) hypertension; E11.9 Type 2 diabetes mellitus without complications; E66.9 Obesity, unspecified; F41.9 Anxiety disorder, unspecified; F32.A Depression, unspecified; R14.0 Abdominal distension (gaseous); D64.9 Anemia, unspecified; E78.2 Mixed hyperlipidemia; N19 Unspecified kidney failure; Z98.41 Cataract extraction status, right eye; Z80.0 Family history of malignant neoplasm of digestive organs; Z79.82 Long term (current) use of aspirin; Z79.899 Other long term (current) drug therapy
CPT/HCPCS: 82948 ×2; 45382; J7040; J3010; J7030; J2704 ×2; A4215; A4223; A4222; A4221; A4663; A4606; 45388; J3490

== ENCOUNTER 2024-06-17 08:00 | Day surgery (SDC) | payer OTHER, MEDICARE ==
[2024-06-17] VITALS (10 sets, daily range): BP systolic 131–172; BP diastolic 43–65; PULSE 60–74; RESP 12–17; TEMP 96.9–97.6
[~2024-06-17] VITALS: Ht 152.4 cm; Wt 101.6 kg
[~2024-06-17 08:00] MED LIST changes: -ACET-66 PO; +ASPI-1005 PO; -CALCIUM + D3 PO; +DOCU100C33 PO; -LINA145C PO; -PANT20TA18 PO; +PRED20TA3 PO
[2024-06-17] MEDS ORDERED: FERS325 PO (08:35)
[2024-06-17] MEDS ORDERED: OMEG100033 PO (08:36)
[2024-06-17] MEDS: 0.9% NACL 500ML IV.SOLN 500 ML IV ONE (09:39)
[2024-06-17] MEDS ORDERED: proPOFol 10 MG/ML 20ML VIAL IV ONE (10:20)
== END 2024-06-17 11:35 | disposition home or self-care (01) ==
LOC: ENDO 08:00 → DAH 08:00 → ENDO 11:35
PROVIDERS: ATTEND Internal Medicine Gastroenterology
DX: K62.7 Radiation proctitis (principal); K55.20 Angiodysplasia of colon without hemorrhage; K59.04 Chronic idiopathic constipation; D64.9 Anemia, unspecified; E78.2 Mixed hyperlipidemia; N19 Unspecified kidney failure; R14.0 Abdominal distension (gaseous); I10 Essential (primary) hypertension; F41.9 Anxiety disorder, unspecified; F32.A Depression, unspecified; E11.9 Type 2 diabetes mellitus without complications; Z85.42 Personal history of malignant neoplasm of other parts of uterus; Z98.41 Cataract extraction status, right eye; Z79.899 Other long term (current) drug therapy
CPT/HCPCS: 45331; 00811; 82948 ×2; J7040; J2704; A4620; A4215 ×2; A4223; A4222; A4221; A4663; A4606; 45334; J3490

== ENCOUNTER 2025-02-26 18:57 | Emergency (ER) | payer OTHER, MEDICARE ==
[~2025-02-26] VITALS: Ht 154.9 cm; Wt 90.7 kg
--- NOTE | 2025-02-26 19:10 | NUR ---
PT CARE ASSUMED AT THIS TIME
--- NOTE | 2025-02-26 19:29 | NUR ---
BLADDER SCAN PREFORMED AT BEDSIDE BY ED RN. 10 MLS FOUND ON BLADDER SCAN. ED RN MADE MD VO AWARE.
--- NOTE | 2025-02-26 20:13 | ERN ---
General Chief Complaint: Blood in Urine: Stated Complaint: BLOOD IN THE URINE Time Seen by MD: 19:23 History of Present Illness Initial Comments 49-year-old female history of ESRD on hemodialysis brought in by EMS for evaluation of 10 day history of dysuria, hematuria. Patient states that she has noted intermittent blood in her urine and itching for the past 10 days. She was seen at an outside hospital and was told that she was okay however she came to the emergency room today to find a 2nd opinion. No fever no cough no shortness a breath. No vomiting or diarrhea. No abdominal pain. No chest pain or palpitations Allergies: Coded Allergies: No Known Drug Allergies (Unverified Allergy, Unknown, 12/05/20) Home Meds Reported Medications [place]-3/Dha/Epa/Fish Oil (Fish Oil 1,000 mg Softgel) 1,000 Mg (120 Mg-180 Mg) Capsule, 1 CAP PO AM for 30 Days, #60 CAP 0 Refills 06/17/24 Ferrous Sulfate (Ferrous Sulfate) 325 Mg (65 Mg Iron) Ectab, 1 TAB PO DAILY for 30 Days, #30 TAB 0 Refills 06/17/24 Docusate Sodium (Docusate Sodium) 100 Mg Capsule, 1 CAP PO BID for constipation for 7 Days, #14 CAP 0 Refills 04/10/24 [Auryxia] No Conflict Check, 210 MG PO BID 08/28/23 Lisinopril (Lisinopril) 20 Mg Tablet, 20 MG PO DAILY, TAB 08/28/23 Insulin Glargine,Hum.rec.anlog (Lantus Solostar) 100 Unit/Ml (3 Ml) Insuln.pen, 5 UNIT SQ DAILYBKFST, SYRINGE 07/12/23 Hydralazine HCl (Hydralazine HCl) 100 Mg Tablet, 100 MG PO BID, TAB 07/12/23 Past Medical History Past Medical History: Diabetes-Type II, Hypertension Medical History Other: ESRD ON DIALYSIS Past Surgical History: Other Surgical History Other: TOW AMPUTATION Social History Social History: Negative, Lives with family Female( History) History: Not Applicable Genitourinary: (+) dysuria, (+) hematuria Review of Systems: was completed, & the rest were negative. Physical Exam Physical Exam Dictation GENERAL APPEARANCE NAD, activity normal for age, well developed/ well nourished, no cyanosis, pallor, or diaphoresis. EYES lids/conjunctiva normal. EARS/NOSE/THROAT Mucous membranes moist, nares normal, lips/teeth normal uvula midline without oral pharyngeal erythema, exudate or swelling TMs normal bilaterally. No lymphangitis/lymphedema. HEAD/NECK normocephalic atraumatic, no facial trauma, neck is supple. RESPIRATORY respiratory effort normal, speaks in full sentences, no tripod position, no accessory muscle use. Lungs clear to auscultation without rhonchi, wheezes, rales CARDIAC Regular rate and rhythm, no edema. ABDOMINAL Soft, ND/NT. No evidence of fluid wave. No pulsatile masses on exam, rebound tenderness, Ellis sign or pain over Mcburney's point. MUSCLES/EXTREMITIES No abnormal range of motion, no swelling. SKIN Warm, pink and dry. No rashes, dermatoses, petechiae or lesions. NEUROLOGICAL Speech is clear and appropriate. Normal level of consciousness. Gait and coordination are normal. 5/5 strength in all extremities. PSYCH Normal mood and affect. Judgement/competence is appropriate Results Laboratory and Microbiology Lab and Micro Result Laboratory Tests Test 02/26/25 20:59 Urine Color RED (YELLOW) Urine Appearance BLOODY (CLEAR) H Urine pH 7.5 (5.0-8.0) Urine Specific [place] 1.020 (1.001-1.031) Urine Protein >=300 mg/dL (NEGATIVE) H Urine Glucose (UA) 250 mg/dL (NEGATIVE) H Urine Ketones NEGATIVE mg/dL (NEGATIVE) Urine Occult Blood LARGE (NEGATIVE) H Urine Nitrate NEGATIVE (NEGATIVE) Urine Bilirubin NEGATIVE mg/dL (NEGATIVE) Urine Urobilinogen 0.2 mg/dL (0.2-1.0) Urine Leukocyte Esterase NEGATIVE [place]/uL Urine RBC TNTC /HPF (0-1) H Urine WBC None Seen /HPF (0-1) Urine Squamous Epithelial Cells None Seen /HPF (0-2) Urine Bacteria None Seen /HPF (None Seen) MDM 49-year-old female here for evaluation of dysuria/hematuria. We will get urine studies and reassess. Her vitals are stable. Disposition pending results of labs. Likely discharge home. Re-evaluation at 10:00 p.m.. Patient well-appearing no acute distress. Vital signs stable. Bladder scan showed minimal urine. Still we got a urine cath to see if patient had nitrites/leuk esterase which were negative. We will discharge home at this time. Patient to follow up with the PCP for further management and evaluation Patient's prior external medical records from other ER visits were reviewed by me as indicated. Prior testing and results from previous visits were reviewed. Prior tests were taken into account with medical decision making and resource utilization, independent historian/historians were used to obtain complete medical history. I independently interpreted the test that were performed, results were reviewed by me and considered findings on radiology if ordered. Medical management and examination interpretation discussions were had by me with other qualified healthcare professionals as indicated for the patient's c are. Labs and imaging reviewed with patient. All questions answered at this time. Patient advised to follow up with primary care physician in the next few days. Patient well-appearing, no acute distress. Vital signs stable. Will discharge at this time. ED Course Orders Procedure Category Date Status Time Bladder Scan CPOE 02/26/25 Transmitted 19:04 Urinalysis Profile LAB 02/26/25 Complete 19:04 Hydrocodone/Apap PHA 02/26/25 In Process 5/325 ([place]iv[place] 5/325mg) 22:00 Current Medications Medications (Trade) Dose Ordered Sig/Radha Route PRN Reason Start Time Stop Time Status Last Admin Dose Admin Acetaminophen/ Hydrocodone Bitart (NORco 5/325MG) 1 tab ONCE ONCE PO 02/26/25 22:00 02/26/25 22:01 02/26/25 21:57 Vital Signs Date Time Temp Pulse Resp B/P (MAP) Pulse Ox O2 Delivery O2 Flow Rate FiO2 02/26/25 19:39 98.6 75 18 138/56 98 Room Air* 0 21 02/26/25 18:58 98.6 74 20 160/65 99 Room Air DX & DISP Disposition: Discharge Departure Impression: Primary Impression: Hematuria Condition: Stable Referrals: SULTANA CHAVEZ MD (PCP) HARRY VO MD Feb 26, 2025 20:13
[2025-02-26 21:43] LABS: APPEARANCE,URINE BLOODY (CLEAR); GLUCOSE, URINE (UA) 250 mg/dL (NEGATIVE); LEUKOCYTE ESTERASE ,URINE NEGATIVE Leu/uL (NEGATIVE); NITRATE,URINE NEGATIVE (NEGATIVE); OCCULT BLOOD,URINE LARGE (NEGATIVE)
[2025-02-26 21:44] LABS: ADD UA MICROSCOPIC YES
[2025-02-26 21:46] LABS: SQUAMOUS EPITHELIAL CELL,UR None Seen /HPF (0-2)
[2025-02-26] MEDS: HYDROcodone/APAP 5/325 1 TAB TABLET PO ONE (21:57)
[2025-02-26 22:06] VITALS: BP 162/47; PULSE 76; RESP 16; TEMP 98.6; O2SAT 97
== END 2025-02-26 22:27 | disposition home or self-care (01) ==
LOC: EDH 18:57
DX: R31.9 Hematuria, unspecified (principal); R30.0 Dysuria; L29.9 Pruritus, unspecified; E11.22 Type 2 diabetes mellitus with diabetic chronic kidney disease; I12.0 Hypertensive chronic kidney disease with stage 5 chronic kidney disease or end stage renal disease; N18.6 End stage renal disease; Z99.2 Dependence on renal dialysis; Z79.899 Other long term (current) drug therapy
CPT/HCPCS: 81001; 99284